=== PATIENT | female | born 1960 | race African-American/Black ===

== ENCOUNTER → 2016-05-25 | Outpatient (CLI) | payer OTHER ==
[2014-12-12 08:21] VITALS: BP 127/86
[~2016-05-25] MED LIST: HALO5TAB PO; LISI-334 PO; SERT100T PO; ZOLPIDEM 5 MG TABLET. PO ONE
--- NOTE | 2016-05-31 00:46 | SLEEP ---
DATE OF STUDY: 05/25/2016 REFERRING PHYSICIAN: Dr. Sandra Jones. The patient is a 56-year-old, who weighs 307 pounds with a BMI of 52. The patient's Wesley score was 2. Sleep study was performed at [facility]. This was a diagnostic study. During the night study, the patient spent 456 minutes in bed and slept for 386 minutes with a sleep efficiency of 85%. Sleep latency was 41 minutes with a REM latency of 153 minutes. Overall, sleep architecture showed increased stage I sleep, normal stage II sleep, normal slow wave and normal REM sleep. During the night study, the patient had 38 obstructive apneas, 5 mixed apneas and no central apneas. There were 25 hypopneas. The patient's apnea-hypopnea index was 11 per hour, supine index 16 per hour and a REM index of 32 per hour. EKG monitoring revealed normal sinus rhythm, average heart rate was 80 beats per minutes, no sustained arrhythmias were observed. Review of nocturnal oximetry study revealed a mean oxygen saturation of 98% with the lowest of 80%. 1.3% of time oxygen saturation remained between 80% and 89%. PLMS were not seen. The patient did not met the split night criteria for CPAP initiation. IMPRESSION: 1. Mild sleep apnea-hypopnea syndrome with moderate increase during supine sleep and worsening during REM sleep. Total AHI is 11 per hour, supine AHI 16 per hour and REM AHI of 32 per hour. 2. No clinically significant nocturnal hypoxia. 3. No clinically significant PLMS. RECOMMENDATIONS: 1. The patient would benefit from a trial of CPAP titration. Alternate treatment options include use of an oral appliance as recommended by the dentist. 2. Avoid supine sleep. 3. Weight loss is strongly advised. 4. Avoid RESOURCE ECONOMIST depressants. 5. Caution regarding driving until the patient's symptoms have resolved with the above recommendations. PEDRO MCGRATH MD DR: NADIA/jerod JOB#: [id number] / [id number] DO
== END | disposition home or self-care (01) ==
LOC: SLPLAB 18:36
PROVIDERS: ATTEND Physician Assistant
DX: G47.33 Obstructive sleep apnea (adult) (pediatric) (principal)
CPT/HCPCS: 95810

== ENCOUNTER → 2016-06-15 | Outpatient (CLI) | payer OTHER ==
[2014-12-12 08:21] VITALS: BP 127/86
[~2016-06-15] MED LIST changes: -ZOLPIDEM 5 MG TABLET. PO ONE
--- NOTE | 2016-06-21 11:06 | SLEEP ---
DATE OF STUDY: 06/15/2016 ATTENDING PHYSICIAN: Dr. Olivia Smith. The patient is a 56 years old who weighs 307 pounds with a BMI of 52. The patient had a previous sleep study on 05/25/2016, was found to have mild MICHELLE with moderate increase during supine sleep and worsening during REM sleep. Total AHI was 11 per hour, supine AHI 16 per hour and REM AHI of 32 per hour. The patient returned to [place] [facility] for CPAP titration. During the night study, the patient spent 408 minutes in bed and slept for 286 minutes with a sleep efficiency of 70%. Sleep latency was 45 minutes with a REM latency of 46 minutes. Overall, sleep architecture showed increased stage I and stage II sleep, normal slow wave and reduced REM sleep. The patient was started on CPAP at 5 cm water and titrated up to 9 cm of water. At the final pressure, the patient had supine as well as REM sleep. The patient slept for 47 minutes. AHI was reduced to 0 per hour and oxygen saturation remained above 92%. The patient used medium size nasal pillows. EKG monitoring revealed normal sinus rhythm, average heart rate was 80 beats per minute. No sustained arrhythmias were observed. PLMs were seen at the index of 1 per hour and none caused EEG arousals. IMPRESSION: 1. Sleep apnea diagnosed by previous sleep study. 2. No clinically significant PLMs. RECOMMENDATIONS: 1. CPAP at 9 cm water completely eliminated the patient's sleep apnea. It should be used on a nightly basis. 2. Follow up in 4-6 weeks to assess compliance with CPAP and to document clinical improvement. 3. Weight loss is strongly advised. 4. Avoid PHYSICAL EDUCATION SPECIALIST depressants. 5. Caution regarding driving until symptoms of sleep apnea resolve with the use of CPAP. 6. The patient to use medium size nasal pillows. PEDRO MCGRATH MD DR: NADIA/jerod JOB#: [id number] / [id number] OLIVIA Cooley MD
== END | disposition home or self-care (01) ==
LOC: RT 18:40
PROVIDERS: ATTEND Specialist
DX: G47.33 Obstructive sleep apnea (adult) (pediatric) (principal)
CPT/HCPCS: 95811

== ENCOUNTER → 2016-07-06 | Outpatient (CLI) | payer OTHER ==
[2014-12-12 08:21] VITALS: BP 127/86
--- NOTE | 2016-07-06 15:07 | RAD ---
EXAM: DIGITAL SCREEN BILAT W/CAD. HISTORY: Screening. COMPARISON: 08/28/2009. FINDINGS: Digital mammography was performed. Computer-aided detection (CAD) was utilized. The breast parenchyma demonstrates scattered fibroglandular densities (tissue density B). No dominant suspicious mass, suspicious microcalcifications, or architectural distortion is identified. Scattered, benign-appearing calcifications are present in both breasts. IMPRESSION: No mammographic evidence of malignancy. BI-RADS CATEGORY: 2 BENIGN FINDING(S) RECOMMENDED FOLLOW-UP: 12M 12 MONTH FOLLOW-UP PQRS compliance statement: Patient information was entered into a reminder system with a target due date for the next mammogram. Mammography is a sensitive method for finding small breast cancers, but it does not detect them all and is not a substitute for careful clinical examination. A negative mammogram does not negate a clinically suspicious finding and should not result in delay in biopsying a clinically suspicious abnormality. "Our facility is accredited by the [employer] Mammography Program."
== END | disposition home or self-care (01) ==
LOC: MAMMO 14:24
PROVIDERS: ATTEND Physician Assistant
DX: Z12.31 Encounter for screening mammogram for malignant neoplasm of breast (principal)
CPT/HCPCS: G0202; 77067

== ENCOUNTER 2016-09-13 10:38 | Emergency (ER) | payer OTHER ==
[~2016-09-13] VITALS: Ht 162.6 cm; Wt 136.1 kg
[2016-09-13] MEDS ORDERED: AZIT250T6 PO (11:04)
--- NOTE | 2016-09-13 11:07 | PHYS DOC ---
Past Medical History Past Medical History: Hypertension Alcohol Use: None Drug Use: None Adult General Chief Complaint Chief Complaint: sinus headache HPI HPI 56-year-old female presenting to the emergency department with sinus pressure pain in the front forehead. She also has a runny nose and watery eyes. This all started approximately 2 or 3 days ago. The pain in her head is similar to previous sinus infections. It is nonradiating mild and without alleviating or exacerbating factors. Review of systems is negative for chest pain shortness of breath fevers chills nausea vomiting. She denies any numbness weakness tingling. She denies abdominal pain nausea or vomiting. All other review of systems is negative unless otherwise noted in history of present illness. ED course: 56-year-old female presenting to the emergency department with signs and symptoms suggestive of acute sinusitis. Patient's blood pressure was elevated. Patient has not taken her blood pressure medications this morning. She denies any vision changes focal neurologic deficit shortness of breath or oliguria. No evidence of end organ damage or dysfunction. Pertinent physical exam findings lungs are clear to auscultation. No crackles or rales. Abdomen is soft nontender. Normal neurologic exam. The patient was given azithromycin for acute sinusitis. I also recommended nasal rinses. Patient was in discharged home. She stated she was going to be able to take her blood pressure medications this morning. The patient was then discharged home in stable condition to follow up with their primary care physician over the next 2-3 days. They were to return if their symptoms worsened or if they were concerned for any reason. [id number] discharge instructions and return precautions were given. Patient's questions were answered to their satisfaction. Patient is comfortable plan. Review of Systems Review of Systems SEE ABOVE. Allergies Allergies Allergies Coded Allergies Type Severity Reaction Last Updated Verified No Known Drug Allergies 12/12/14 No Physical Exam Physical Exam Constitutional: Well developed, well nourished, no acute distress, non-toxic appearance. [] HENT: Normocephalic, atraumatic, bilateral external ears normal, oropharynx moist, no oral exudates, nose normal. [] Eyes: PERRLA, EOMI, conjunctiva normal, no discharge. [] Neck: Normal range of motion, no tenderness, supple, no stridor. [] Cardiovascular:Heart rate regular rhythm, no murmur [] Lungs & Thorax: Bilateral breath sounds clear to auscultation [] Abdomen: Bowel sounds normal, soft, no tenderness, no masses, no pulsatile masses. [] Skin: Warm, dry, no erythema, no rash. [] Back: No tenderness, no CVA tenderness. [] Extremities: No tenderness, no cyanosis, no clubbing, ROM intact, no edema. [] Neurologic: Alert and oriented X 3, normal motor function, normal sensory function, no focal deficits noted. [] Psychologic: Affect normal, judgement normal, mood normal. [] EKG EKG [] Radiology/Procedures Radiology/Procedures [] Course & Med Decision Making Course & Med Decision Making Pertinent Labs and Imaging studies reviewed. (See chart for details) [] Dragon Disclaimer Dragon Disclaimer This electronic medical record was generated, in whole or in part, using a voice recognition dictation system. Departure Departure Impression: Primary Impression: Sinusitis Disposition: HOME, SELF-CARE Condition: STABLE Referrals: OLIVIA CAZARES MD (PCP) Patient Instructions: Sinusitis Additional Instructions: Thank you for allowing us to participate in your care today. Followup with your primary care physician in 3 days if your symptoms do not improve. Call your Primary Doctor tomorrow and inform them of your visit today. If you do not have a primary care provider you can ask for a list of our primary care providers. Return to the emergency department you have any new or concerning findings. This should be evaluated by the primary care physician and any necessary consulting services for continued management within a few days after discharge. Return to emergency room if you have any new or concerning symptoms including but not limited to fever, chills, nausea, vomiting, intractable pain, any new rashes, chest pain, shortness of air, uncontrolled bleeding, difficulty breathing, and/or vision loss. Scripts Azithromycin (AZITHROMYCIN TABLET) 250 Mg Tablet 1 PKG PO UD, #6 TAB Prov: MARYSOL BOSCH MD 09/13/16 MARYSOL BOSCH MD Sep 13, 2016 11:07
[2016-09-13 11:20] VITALS: BP 173/65
== END 2016-09-13 11:32 | disposition home or self-care (01) ==
LOC: ER 10:38
DX: J32.9 Chronic sinusitis, unspecified (principal); I10 Essential (primary) hypertension
CPT/HCPCS: 99283

== ENCOUNTER 2017-11-02 16:23 | Emergency (ER) | payer OTHER ==
[~2017-11-02] VITALS: Ht 162.6 cm; Wt 135.2 kg
[~2017-11-02 16:23] MED LIST changes: +AZIT250T6 PO; +FAMO-63 PO; +HYDR25TA PO
[2017-11-02 16:42] VITALS: BP 155/72
[2017-11-02] MEDS ORDERED: NAPROXEN 500 MG TABLET PO STA (16:44)
[2017-11-02] MEDS ORDERED: diazePAM 5 MG TABLET PO ONE (16:45)
[2017-11-02] MEDS ORDERED: CYCL10TA2 PO (16:50)
[2017-11-02] MEDS ORDERED: DICL50TA4 PO (16:50)
--- NOTE | 2017-11-02 16:51 | PHYS DOC ---
Past Medical History Past Medical History: Anxiety, Hypertension, Schizophrenia Past Surgical History: Cholecystectomy, Other Additional Past Surgical Histo: fibroids removed, HERNIA Alcohol Use: None Drug Use: None Adult General Chief Complaint Chief Complaint: OTHER COMPLAINTS [facility] HPI Patient is a 57 year old female with a history of arthritis, hypertension, schizophrenia, who presents today complaining of 10 out of 10 pain throughout her body that has been going on since 2014. Patient denies any known injury. Patient states she would like something to calm her muscles down and relieve the pain. She states she used to follow-up with the primary care doctor but the doctor is no longer in the practice. Patient states her daughter also moved into her house 3 months ago, and this has made her pain worse. Patient states the daughter has the mind of a child and has to be told what to do all the time. Patient denies any chest pain or shortness of breath. Denies any fever coughing or congestion. Denies being on any statins. Review of Systems Review of Systems Constitutional: Denies fever or chills [] Eyes: Denies change in visual acuity, redness, or eye pain [] HENT: Denies nasal congestion or sore throat [] Respiratory: Denies cough or shortness of breath [] Cardiovascular: No additional information not addressed in HPI [] GI: Denies abdominal pain, nausea, vomiting, bloody stools or diarrhea [] : Denies dysuria or hematuria [] Musculoskeletal: Pain throughout her body chronic Integument: Denies rash or skin lesions [] Neurologic: Denies headache, focal weakness or sensory changes [] All other systems were reviewed and found to be within normal limits, except as documented in this note. Allergies Allergies Allergies Coded Allergies Type Severity Reaction Last Updated Verified No Known Drug Allergies 12/12/14 No Physical Exam Physical Exam Constitutional: Well developed, well nourished, no acute distress, non-toxic appearance. [] HENT: Normocephalic, atraumatic, bilateral external ears normal, oropharynx moist, no oral exudates, nose normal. [] Eyes: PERRLA, EOMI, conjunctiva normal, no discharge. [] Neck: Normal range of motion, no tenderness, supple, no stridor. [] Cardiovascular:Heart rate regular rhythm, no murmur [] Lungs & Thorax: Bilateral breath sounds clear to auscultation [] Abdomen: Bowel sounds normal, soft, no tenderness, no masses, no pulsatile masses. [] Skin: Warm, dry, no erythema, no rash. [] Back: No tenderness, no CVA tenderness. [] Extremities: No tenderness, no cyanosis, no clubbing, ROM intact, no edema. [] Neurologic: Alert and oriented X 3, normal motor function, normal sensory function, no focal deficits noted. [] Psychologic: Flat affect, very loud during the conversation EKG EKG [] Radiology/Procedures Radiology/Procedures [] Course & Med Decision Making Course & Med Decision Making Pertinent Labs and Imaging studies reviewed. (See chart for details) This is a 57-year-old female patient presenting to the ED today complaining of pain throughout her body that has been going on since 2013. No known injury. Patient to be discharged with diclofenac and cyclobenzaprine. Follow-up with her own PCP or doctor from the list provided in the next 1-2 weeks. Dragon Disclaimer Dragon Disclaimer This electronic medical record was generated, in whole or in part, using a voice recognition dictation system. Departure Departure Impression: Primary Impression: Chronic pain Additional Impression: Musculoskeletal pain Disposition: HOME, SELF-CARE Condition: STABLE Referrals: OLIVIA CAZARES MD (PCP) Follow up in one week Patient Instructions: Musculoskeletal Pain Additional Instructions: You were evaluated in the emergency room, we wrote you prescription medications , take them as prescribed. Establish care with one of the doctors from the list provided and follow-up as soon as possible. Scripts Diclofenac Sodium (DICLOFENAC SODIUM) 50 Mg Tablet.dr 1 TAB PO BID, #20 TAB 0 Refills Prov: KAREN GUTIÉRREZ APRN 11/02/17 Cyclobenzaprine Hcl (CYCLOBENZAPRINE HCL) 10 Mg Tablet 1 TAB PO TID, #30 TAB Prov: KAREN GUTIÉRREZ APRN 11/02/17 Problem Qualifiers Primary Impression: Chronic pain Chronic pain type: chronic pain syndrome Qualified Codes: G89.4 - Chronic pain syndrome KAREN GUTIÉRREZ APRN Nov 02, 2017 16:51
== END 2017-11-02 17:18 | disposition home or self-care (01) ==
LOC: ER 16:23
DX: G89.29 Other chronic pain (principal); M79.1 Myalgia; M19.90 Unspecified osteoarthritis, unspecified site; I10 Essential (primary) hypertension; F41.9 Anxiety disorder, unspecified; F20.9 Schizophrenia, unspecified; Z90.49 Acquired absence of other specified parts of digestive tract
CPT/HCPCS: 99284

== ENCOUNTER → 2018-07-31 | Outpatient (CLI) | payer OTHER ==
[~2018-07-31] MED LIST changes: +AMLO5TAB10 PO; +BENZ1TAB5 PO; +CLON0.5T11 PO; +CLOR7.5T PO; +CYCL10TA2 PO; +DICL50TA4 PO; +DIVA500T2 PO; +DULO60CA6 PO; +HALO2ORA9 PO; +LOSA1TAB19 PO; +OXYC5CAP PO; +WARF1TAB74 PO
--- NOTE | 2018-07-31 15:27 | RAD ---
EXAM: Chest, 2 views. HISTORY: Knee surgery. COMPARISON: None. FINDINGS: 2 views of the chest are obtained. There is no infiltrate, pleural effusion or pneumothorax. There is a prominent cardiac silhouette. IMPRESSION: No acute pulmonary finding. Electronically signed by: Monik Zurita MD (07/31/2018 3:24 PM) [facility]
== END | disposition home or self-care (01) ==
LOC: SURGPAT 13:43
PROVIDERS: ATTEND Orthopaedic Surgery
DX: Z01.818 Encounter for other preprocedural examination (principal); M25.561 Pain in right knee
CPT/HCPCS: 71046; 87641

== ENCOUNTER 2018-08-14 06:05 | Inpatient (IN) | payer OTHER ==
[2018-08-14] VITALS (9 sets, daily range): BP systolic 105–131; BP diastolic 59–81
[~2018-08-14] VITALS: Ht 162.6 cm; Wt 121.6 kg
[~2018-08-14 06:05] MED LIST changes: +HYDROcodone/APAP 7.5/325MG 1 TAB TABLET PO PRN; -OXYC5CAP PO; +TRANEXAMIC ACID 1,000 MG in IV NS 50ML -- 1ST BAG INJ ONE; -WARF1TAB74 PO; +ceFAZolin SODIUM 3 GM in IV DEXTROSE 5% 100ML 100 ML IV PRN
[2018-08-14] MEDS ORDERED: LIDOCAINE 2% PF 5 ML VIAL. ONE (07:11)
[2018-08-14] MEDS ORDERED: ONDANSETRON PF 4 MG/2 ML VIAL. ONE ×2 (07:11→08:00)
[2018-08-14] MEDS ORDERED: DEXAMETHASONE SOD PHOS 4 MG/ML VIAL ONE ×2 (07:11→08:00)
[2018-08-14] MEDS ORDERED: fentaNYL PF VIAL 100 MCG/2 ML VIAL ONE ×4 (07:11→09:38)
[2018-08-14] MEDS ORDERED: MIDAZOLAM HCL/PF 2 MG/2 ML VIAL. ONE ×2 (07:11→08:00)
[2018-08-14] MEDS ORDERED: PROPOFOL 20 ML IV ONE (07:11)
[2018-08-14] MEDS: IV RINGERS,LACTATED 1000ML 1,000 ML IV SCH ×2 (07:24→20:35)
[2018-08-14] MEDS ORDERED: fentaNYL PF VIAL 100 MCG/2 ML VIAL IV PRN (07:45)
[2018-08-14] MEDS ORDERED: CALCIUM CARBONATE 500 MG TAB.CHEW PO PRN (07:45)
[2018-08-14] MEDS ORDERED: PROCHLORPERAZINE 5 MG TABLET. PO PRN (07:45)
[2018-08-14] MEDS ORDERED: DEXTROSE 50% 25 GM / 50ML DISP.SYRIN. IV PRN (07:45)
[2018-08-14] MEDS ORDERED: ceFAZolin SODIUM 3 GM in IV DEXTROSE 5% 100ML 100 ML IV SCH (07:45)
[2018-08-14] MEDS ORDERED: 0.9 % SODIUM CHLORIDE 10 ML DISP.SYRIN. IV PRN (07:45)
[2018-08-14] MEDS ORDERED: diphenhydrAMINE 50 MG/ML VIAL IV PRN (07:45)
[2018-08-14] MEDS ORDERED: METOCLOPRAMIDE HCL 10 MG/2 ML VIAL. IV PRN (07:45)
[2018-08-14] MEDS ORDERED: MORPHINE SULFATE 2 MG/ML VIAL. IV PRN (07:45)
[2018-08-14] MEDS ORDERED: ZOLPIDEM 5 MG TABLET. PO PRN (07:45)
[2018-08-14] MEDS ORDERED: ePHEDrine PF IN SALINE 50 MG/10 ML SYRINGE. IV ONE ×2 (07:49→08:00)
[2018-08-14] MEDS ORDERED: PHENYLEPHRINE in 0.9% NACL PF 1 MG/10 ML SYRINGE. IV ONE ×2 (07:54→08:00)
--- NOTE | 2018-08-14 07:56 | HP ---
ADMIT DATE: 08/14/2018 CHIEF COMPLAINT: Bilateral knee pain. HISTORY OF PRESENT ILLNESS: The patient has bilateral knee pain for many years, the right has been worse since an injury as a child and continues. The right knee more than left worse with activity and she has had multiple shots in the past that are no help. She is extremely limited in her activities of daily living and gets out very little due to her limited mobility issues. She only eats one meal a day at lunch. PAST MEDICAL HISTORY: Significant for hypertension and obesity. PAST SURGICAL HISTORY: Cholecystectomy, hernia repair. FAMILY HISTORY: Denies any family history. SOCIAL HISTORY: Denies smoking or drug use, only occasional alcohol consumption. MEDICATIONS: Include losartan. ALLERGIES: She has no known drug allergies. REVIEW OF SYSTEMS: Reveals her current weight about 268 pounds and continues weight loss. She denies any chest pain, shortness of breath, fever, chills, other constitutional symptoms or recent illness. PHYSICAL EXAMINATION: VITAL SIGNS: Per admission sheet. HEENT: Atraumatic, normocephalic. HEART: Regular rate and rhythm. LUNGS: Clear to auscultation bilaterally. ABDOMEN: Benign, obese. EXTREMITIES: Lower extremities reveal slight varus on the right, more so than the left with joint line tenderness bilaterally. No gross ligamentous instability. Normal patellofemoral tracking with crepitus bilaterally moderately. Normal alignment, stability of bilateral hips and ankles. IMAGING: X-rays show tricompartmental degenerative changes of the right knee, worse than the left. TREATMENT PLAN: I went over with her previously in her clinic evaluation. Risks, benefits, postoperative course of total knee arthroplasty and possibility of infection, premature wear or loosening, continued pain, nerve or blood vessel damage, medical or other anesthetic complications among others. All her questions were answered. She wishes to proceed with surgical evaluation and treatment, which will occur today with [facility] admission to follow. SHERI GARCIA MD DR: NORA/jerod JOB#: [id number] / [id number] OLIVIA Cooley MD
[2018-08-14] MEDS ORDERED: PROPOFOL 10 MG/ML (20ML) VIAL. IV ONE (08:00)
[2018-08-14] MEDS ORDERED: LIDOCAINE 1% PF 5 ML VIAL. ONE (08:00)
[2018-08-14] MEDS ORDERED: TRANEXAMIC ACID 1,000 MG in IV NS 50ML -- 2ND BAG INJ ONE (08:00)
[2018-08-14] MEDS: MORPHINE SULFATE 5 MG, KETOROLAC 30MG VIAL 30 MG, ROPIVacaine 0.5% PF 60 ML, EPINEPHrin... INT ART ONE ×10 (08:24→09:47)
[2018-08-14] MEDS: IV NORMAL SALINE 1000ML BAG 1,000 ML IV SCH ×2 (11:00→17:03)
--- NOTE | 2018-08-14 11:17 | PDOC4 ---
Operative Note Operative Note Date of surgery: 08/14/2018 Preoperative diagnosis: Degenerative joint disease right knee Postoperative diagnosis: Same Operative procedure: Right total knee arthroplasty Surgeon: Luanne Assist: Rena Anesthesia: Gen. endotracheal Estimated blood loss: 50 mL Complications: None Operative indications: Patient is a 58-year-old female with long-standing right knee pain and degenerative change more so than left due to a childhood injury on her right knee. She has had severe limitations of her activities of daily living recently and has had multiple injections over a number of years in the past with no recent affect. She has been losing weight despite inability to effectively get up and around very well and wishes to proceed with more definitive treatment. I had gone over with her the possibility of complications including infection nerve or blood vessel damage medical or other anesthetic complications premature wear or loosening continued pain and she wishes to proceed with surgical evaluation and treatment. Operative text: Patient was identified procedure verified patient placed in the supine position on the operating table. After adequate amounts of general anesthesia were administered the right lower extremity was prepped and draped in standard sterile fashion with a thigh tourniquet. After timeout was performed patient procedure identified and verified the right leg was exsanguinated by Esmarch bandage tourniquet inflated to 350 mm mercury midline incision was made medial parapatellar approach patella was everted fat pad was excised and the femur was drilled for the intramedullary drill guide distal cut was made in the standard fashion and a size 4 cutting block was selected to make anterior posterior and chamfer cuts. Tibial cutting guide was then aligned extra medullary with the second toe and medial release was carried out to obtain excellent ligament balance varus valgus and in flexion extension. Tibia was drilled and broached after a size 3 implant was selected a size 4 cruciate retaining femoral component was placed and found to have excellent stability and range of motion with a size 12 spacer. The patella was noted to be very small and a biconvex patella was placed medially after reaming and lateral bone was removed to avoid any impingement. Trial components were removed thorough irrigation carried out normal saline solution and bleeding points were controlled by electrocautery and the following components were cemented in place with polymethylmethacrylate cement a size 3 journey tibia nonporous tibial baseplate a size 4 cruciate retaining journey 2 Oxinium femoral component and a size 23 mm biconvex patellar component. After excess cement was removed and further thorough irrigation carried out normal saline solution a 12 mm journey articular insert was locked into place thorough irrigation again carried out with normal saline solution joint capsule was injected with the intra-articular mixture and Hemovac drain and pain catheter were placed. Retinaculum was closed with #2 Ethibond suture and reinforced with #1 PDS strata fix subcutaneous closure with buried Vicryl suture subcuticular closure with 3-0 Monocryl strata fix a yang dressing with Acticoat was placed toes were noted be warm pink find deflation of tourniquet patient was returned recovery room in stable condition having tolerated procedure well. Rena mri assistant was present for the procedure and assisted in prepping draping retraction and skin closure SHERI GARCIA MD Aug 14, 2018 11:17
--- NOTE | 2018-08-14 11:55 | RAD ---
2 view right knee study Clinical indications: Total right knee arthroplasty FINDINGS: Total right knee arthroplasty is evident which is well aligned. No acute fracture or osteolytic process is seen. IMPRESSION: Total right knee arthroplasty. Electronically signed by: Nato Aldridge MD (08/14/2018 11:52 AM) [id number]
[2018-08-14] MEDS: ONDANSETRON ODT 4 MG TAB.RAPDIS. PO SCH ×2 (12:00→17:50)
[2018-08-14] MEDS: ONDANSETRON PF 4 MG/2 ML VIAL. IV SCH ×2 (12:00→17:49)
--- NOTE | 2018-08-14 12:57 | NUR ---
RECEIVED FROM RECOVERY. SHE IS SLEEPY BUT WILL ANSWER QUESTIONS. UNCERTAIN ABOUT THE VALIDITY. MOTHER AND SISTER HERE; ANSWERED HISTORY QUESTIONS BUT UNCERTAIN ABOUT DAY TO DAY ACTIVITIES I.E BM? FELL YES BUT UNCERTAIN ABOUT DATE. SHE HAS GOOD MOTION, SENSATION AND PULSES IN BILATERAL LOWER EXTREMITIES. SHE FALLS ASLEEP QUICKLY. WILL REINFORCE INSTRUCTION WHEN MORE AWAKE.
[2018-08-14 13:15] LABS: PROTHROMBIN TIME PATIENT 12.9 SEC (11.7-14.0)
[2018-08-14] MEDS: ceFAZolin SODIUM 3 GM in IV DEXTROSE 5% 100ML 100 ML IV SCH ×2 (13:41→19:28)
[2018-08-14] MEDS ORDERED: WARFARIN 7.5 MG TABLET. PO ONE (16:00)
[2018-08-14] MEDS: FERROUS SULFATE 325 MG TABLET. PO SCH (16:02)
[2018-08-14] MEDS: oxyCODONE IR 5 MG TABLET PO PRN (16:02)
[2018-08-14] MEDS: KETOROLAC 30MG VIAL 30 MG, BUPIVACAINE MPF 0.25% 20 ML, EPINEPHrine 0.5 MG in TOTAL VOL... INT ART SCH (18:21)
[2018-08-14] MEDS: HALOPERIDOL 2 MG/ML ORAL.CONC. PO SCH (21:29)
[2018-08-14] MEDS: BENZTROPINE MESYLATE 1 MG TABLET. PO SCH (21:29)
[2018-08-14] MEDS: DIVALPROEX EXTENDED RELEASE 500 MG TAB.ER.24H. PO SCH (21:30)
[2018-08-14] MEDS ORDERED: BENZTROPINE MESYLATE 1 MG TABLET. ONE (21:30)
[2018-08-14] MEDS: clonazePAM 1 MG TABLET PO SCH (21:30)
[2018-08-15] MEDS: ceFAZolin SODIUM 3 GM in IV DEXTROSE 5% 100ML 100 ML IV SCH (01:28)
[2018-08-15 02:30] VITALS: BP 105/61
[2018-08-15 05:02] LABS: HEMATOCRIT 32.3 % (36.0-47.0); HEMOGLOBIN 10.7 g/dL (12.0-15.5)
[2018-08-15 05:09] LABS: PROTHROMBIN TIME PATIENT 15.3 SEC (11.7-14.0)
[2018-08-15] MEDS: GABAPENTIN 100 MG CAPSULE. PO SCH ×3 (05:41→20:28)
[2018-08-15] MEDS: KETOROLAC 30MG VIAL 30 MG, BUPIVACAINE MPF 0.25% 20 ML, EPINEPHrine 0.5 MG in TOTAL VOL... INT ART SCH (05:41)
[2018-08-15] MEDS: ONDANSETRON PF 4 MG/2 ML VIAL. IV SCH ×2 (06:00)
[2018-08-15] MEDS: ONDANSETRON ODT 4 MG TAB.RAPDIS. PO SCH ×2 (06:00)
[2018-08-15] MEDS ORDERED: MAGNESIUM HYDROXIDE 2,400 MG/30 ML ORAL.SUSP. PO PRN (06:00)
[2018-08-15 06:28] VITALS: BP 106/61
[2018-08-15] MEDS ORDERED: LORazepam 1 MG TABLET PO PRN (07:15)
[2018-08-15] MEDS: FERROUS SULFATE 325 MG TABLET. PO SCH ×2 (08:03→16:27)
[2018-08-15] MEDS: DULoxetine HCL 30 MG CAPSULE.DR PO SCH (08:03)
[2018-08-15] MEDS: ACETAMINOPHEN 500 MG TABLET PO SCH ×3 (08:03→20:28)
[2018-08-15] MEDS: hydroCHLOROthiazide 12.5 MG CAPSULE PO SCH (08:03)
[2018-08-15] MEDS: BENZTROPINE MESYLATE 1 MG TABLET. PO SCH ×2 (08:03→20:28)
[2018-08-15] MEDS: MULTIVITAMIN with MINERAL TABLET. PO SCH (08:03)
[2018-08-15] MEDS: LOSARTAN POTASSIUM 50 MG TABLET. PO SCH (08:04)
[2018-08-15] MEDS: MELOXICAM 7.5 MG TABLET PO SCH (08:04)
[2018-08-15] MEDS: SENNOSIDES/DOCUSATE 8.6/50MG TABLET. PO SCH (08:05)
[2018-08-15] MEDS: amLODIPine BESYLATE 5 MG TABLET PO SCH (08:05)
[2018-08-15] MEDS: HALOPERIDOL 2 MG/ML ORAL.CONC. PO SCH ×2 (08:05→20:29)
[2018-08-15] MEDS: clonazePAM 1 MG TABLET PO SCH ×2 (08:07→20:29)
[2018-08-15] MEDS ORDERED: BENZTROPINE MESYLATE 1 MG TABLET. ONE ×2 (09:00)
[2018-08-15] MEDS ORDERED: NON FORMULARY ITEM (Losartan/Hydrochlorothiazide (Losartan-Hctz 50-12.5 Mg Tab) 1 TAB) PO SCH (09:00)
--- NOTE | 2018-08-15 09:00 | NUR ---
Patients IV in her left hand was dislodged when transferring this morning. IV was then discontinued and a bandage was applied. IV in right hand still intact. Will continue to monitor.
[2018-08-15] MEDS: IV RINGERS,LACTATED 1000ML 1,000 ML IV SCH (09:55)
[2018-08-15] MEDS ORDERED: ONDANSETRON PF 4 MG/2 ML VIAL. IV PRN (12:00)
[2018-08-15] MEDS ORDERED: ONDANSETRON ODT 4 MG TAB.RAPDIS. PO PRN (12:00)
[2018-08-15] MEDS ORDERED: BISACODYL 10 MG SUPP.RECT. PR PRN (16:00)
[2018-08-15] MEDS ORDERED: WARFARIN 5 MG TABLET. PO SCH (16:00)
[2018-08-15] MEDS: oxyCODONE IR 5 MG TABLET PO PRN (16:28)
[2018-08-15 17:47] VITALS: BP 100/68
--- NOTE | 2018-08-15 18:09 | NUR ---
Pharmacy Warfarin Dosing Note S:Pharmacy consulted to assist with anticoagulation therapy started 08/14/18 with target INR: 1.6 - 2.5 O:FLEX REYES is a 58 year old F with TKA LABS: Last INR: 1.2 Last HGB: 10.7 Last HCT: Last PLT: Last dose of 7.5 mg given on 08/14/18 at 1600 Previous Regimen: Vitamin K given: N Drug Interaction Changes: Ongoing Drug Interactions: A:INR of 1.2 is below desired range. Target range for this patient is: 1.6 - 2.5 P: Warfarin dose: 5 mg Today at 1600 Bridge Therapy: Next INR due AM Pharmacy anticoagulation service will continue to follow. JORY CONNER Orion, 08/15/18 [id number]
--- NOTE | 2018-08-15 18:30 | PDOC ---
PROGRESS NOTES Subjective Subjective Problems overnight: Overall has minimal complaints states pain is well controlled and she is getting up and around reasonably with assistance Objective Vital Signs Vital Signs Date Time Temp Pulse Resp B/P (MAP) Pulse Ox O2 Delivery O2 Flow Rate FiO2 08/15/18 17:47 98.0 90 20 100/68 (79) 96 Room Air 98.0 08/15/18 06:28 3.0 Physical Exam Rex dressing is intact Hemovac and pain catheter likewise intact distal neurovascular status intact Labs Laboratory Tests Test 08/14/18 10:43 08/14/18 13:00 08/15/18 04:00 Glucose (Fingerstick) 152 mg/dL (70-99) Prothrombin Time 12.9 SEC (11.7-14.0) 15.3 SEC (11.7-14.0) Prothromb Time International Ratio 1.0 (0.8-1.1) 1.2 (0.8-1.1) Hemoglobin 10.7 g/dL (12.0-15.5) Hematocrit 32.3 % (36.0-47.0) Mean Corpuscular Hemoglobin Concent 33 g/dL (31-37) Laboratory Tests Test 08/15/18 04:00 Hemoglobin 10.7 g/dL (12.0-15.5) Hematocrit 32.3 % (36.0-47.0) Mean Corpuscular Hemoglobin Concent 33 g/dL (31-37) Prothrombin Time 15.3 SEC (11.7-14.0) Prothromb Time International Ratio 1.2 (0.8-1.1) Imaging Postop x-rays show well aligned and sized total knee arthroplasty Assessment Assessment POD# [1], S/P [right total knee arthroplasty] Plan Plan of Care Continue mobilize weightbearing as tolerated, Coumadin anticoagulation Placement and discharge based on progress SHERI GARCIA MD Aug 15, 2018 18:30
[2018-08-15] MEDS: DIVALPROEX EXTENDED RELEASE 500 MG TAB.ER.24H. PO SCH (20:28)
--- NOTE | 2018-08-15 21:30 | NUR ---
resting in recliner with legs elevated. upon arousing; states she would like to sleep in bed. transferred with mod assist 2 to commode prior to going to bed. she was unable to void. o2 applied related to history of sleep apnea (no Cap) at 3/nc. spot check while sleeping was 92% on 3l/nc. she transfers fair, but unable to walk long distances
[2018-08-16] MEDS: ACETAMINOPHEN 500 MG TABLET PO SCH ×4 (03:00→21:26)
[2018-08-16 05:27] LABS: HEMATOCRIT 30.2 % (36.0-47.0); HEMOGLOBIN 10.1 g/dL (12.0-15.5)
[2018-08-16 05:31] LABS: PROTHROMBIN TIME PATIENT 27.8 SEC (11.7-14.0)
[2018-08-16] MEDS: GABAPENTIN 100 MG CAPSULE. PO SCH ×3 (05:37→21:26)
[2018-08-16 06:00] VITALS: BP 112/63
--- NOTE | 2018-08-16 06:02 | NUR ---
awake. wants to go to the bathroom. transfers poorly with max assist of 2. she was unable to void at this time and wants to go back to bed. returned to bed. bladder scan completed; 200cc. instructed to drink more water.
[2018-08-16 08:15] VITALS: BP 115/54
[2018-08-16] MEDS: SENNOSIDES/DOCUSATE 8.6/50MG TABLET. PO SCH (08:16)
[2018-08-16] MEDS: DULoxetine HCL 30 MG CAPSULE.DR PO SCH (08:16)
[2018-08-16] MEDS: BENZTROPINE MESYLATE 1 MG TABLET. PO SCH ×2 (08:16→21:26)
[2018-08-16] MEDS: MELOXICAM 7.5 MG TABLET PO SCH (08:17)
[2018-08-16] MEDS: HALOPERIDOL 2 MG/ML ORAL.CONC. PO SCH ×2 (08:17→21:27)
[2018-08-16] MEDS: FERROUS SULFATE 325 MG TABLET. PO SCH ×2 (08:17→17:04)
[2018-08-16] MEDS: MULTIVITAMIN with MINERAL TABLET. PO SCH (08:17)
[2018-08-16] MEDS: clonazePAM 1 MG TABLET PO SCH ×2 (08:17→21:27)
[2018-08-16] MEDS: oxyCODONE IR 5 MG TABLET PO PRN (08:32)
[2018-08-16] MEDS ORDERED: BENZTROPINE MESYLATE 1 MG TABLET. ONE ×2 (09:00)
--- NOTE | 2018-08-16 11:10 | NUR ---
Pharmacy Warfarin Dosing Note S:Pharmacy consulted to assist with anticoagulation therapy started 08/14/18 with target INR: 1.6 - 2.5 O:FLEX REYES is a 58 year old F with TKA LABS: Last INR: 2.6 Last HGB: 10.1 Last HCT: 30.2 Last PLT: Last dose of 5 mg given on 08/15/18 at 1627 Previous Regimen: Vitamin K given: N Drug Interaction Changes: Ongoing Drug Interactions: A:INR of 2.6 is within desired range. Target range for this patient is: 1.6 - 2.5 P: Warfarin dose: Hold Today at 1600 Bridge Therapy: NONE Next INR due 08/17/18 Pharmacy anticoagulation service will continue to follow. KIM LYNN RP, 08/16/18 [id number]
[2018-08-16] MEDS: hydroCHLOROthiazide 12.5 MG CAPSULE PO SCH (12:00)
[2018-08-16] MEDS: LOSARTAN POTASSIUM 50 MG TABLET. PO SCH (12:00)
[2018-08-16] MEDS: amLODIPine BESYLATE 5 MG TABLET PO SCH (12:00)
--- NOTE | 2018-08-16 16:07 | PATHOLOGY ---
[facility] Accession Number: [id number] . 01 Material submitted: . knee - RIGHT KNEE BONE AND TISSUE. Modifiers: right . 01 Clinician provided ICD-10: . 01 Clinical history: . RIGHT KNEE ARTHRITIS AND CHRONIC PAIN . 02 Diagnosis: Segments of bone and soft tissue, right total knee arthroplasty: - Advanced degenerative arthritis. (JPM:tiago; 08/16/2018) QMS/08/16/2018 . 02 Electronically signed: . Lucien Berry MD, Pathologist NPI- [id number] . 01 Gross description: . Received in formalin labeled "Maltbia, Teretha, right knee bone and tissue", are multiple segments of bone including apparent tibia plateau, patella, no discrete meniscus, and soft tissue measuring 10.0 x 8.5 x 2.0 cm in aggregate. Several bone segments are partially covered by pitted ly and granular articular cartilage with areas of eburnation. Osteophyte and possible ly-brown synovial villi are present. [employer] sections submitted in A1 after decalcification. ([facility]; 08/15/2018) [facility] . 02 Pathologist provided ICD-10: M17.11 . 02 CPT . 396088, [id number] Specimen Comment: A courtesy copy of this report has been sent to Specimen Comment: [phone], . Specimen Comment: Report sent to / DR CAZARES Performed at: 01 [facility] [address], [place] [id number] MD Pasquale Veloz MD Phone: [phone] Performed at: 02 [facility] [address] [place], [place] [id number] MD Lucien Berry MD Phone: [phone]
[2018-08-16 18:15] VITALS: BP 108/63
[2018-08-16] MEDS: DIVALPROEX EXTENDED RELEASE 500 MG TAB.ER.24H. PO SCH (21:27)
[2018-08-17] MEDS: ACETAMINOPHEN 500 MG TABLET PO SCH ×2 (02:30→08:10)
[2018-08-17 04:42] LABS: HEMATOCRIT 34.3 % (36.0-47.0); HEMOGLOBIN 11.5 g/dL (12.0-15.5)
[2018-08-17 05:09] LABS: PROTHROMBIN TIME PATIENT 21.3 SEC (11.7-14.0)
[2018-08-17] MEDS: GABAPENTIN 100 MG CAPSULE. PO SCH ×2 (06:08→13:35)
[2018-08-17 06:33] VITALS: BP 121/70
[2018-08-17] MEDS: oxyCODONE IR 5 MG TABLET PO PRN (06:41)
--- NOTE | 2018-08-17 07:18 | NUR ---
Wanting to sit on edge of bed this am. Assisted. O2 at 3l per n/c sating 94-96%. Took off O2. Rechecked O2 sat after 15 minutes. Sating at 86%. Replaced O2 at 3l per n/c. Encourage pt to use IS every 1 while awake. Cont. monitor.
[2018-08-17] MEDS: MELOXICAM 7.5 MG TABLET PO SCH (08:08)
[2018-08-17] MEDS: HALOPERIDOL 2 MG/ML ORAL.CONC. PO SCH (08:08)
[2018-08-17] MEDS: clonazePAM 1 MG TABLET PO SCH (08:08)
[2018-08-17] MEDS: SENNOSIDES/DOCUSATE 8.6/50MG TABLET. PO SCH (08:08)
[2018-08-17] MEDS: MULTIVITAMIN with MINERAL TABLET. PO SCH (08:09)
[2018-08-17] MEDS: DULoxetine HCL 30 MG CAPSULE.DR PO SCH (08:09)
[2018-08-17] MEDS: FERROUS SULFATE 325 MG TABLET. PO SCH (08:10)
[2018-08-17] MEDS: BENZTROPINE MESYLATE 1 MG TABLET. PO SCH (08:10)
[2018-08-17] MEDS: LOSARTAN POTASSIUM 50 MG TABLET. PO SCH (08:18)
[2018-08-17] MEDS: hydroCHLOROthiazide 12.5 MG CAPSULE PO SCH (08:18)
[2018-08-17] MEDS ORDERED: BENZTROPINE MESYLATE 1 MG TABLET. ONE (09:00)
--- NOTE | 2018-08-17 09:28 | PDOC ---
PROGRESS NOTES Subjective Subjective Problems overnight: Indicates that her right knee is sore and stiff and weak with activity Objective Vital Signs Vital Signs Date Time Temp Pulse Resp B/P (MAP) Pulse Ox O2 Delivery O2 Flow Rate FiO2 08/17/18 08:20 Room Air 3.0 08/17/18 08:18 91 120/83 08/17/18 06:41 18 08/17/18 06:33 98.0 94 98.0 Physical Exam Her dressing shows no drainage whatsoever she has some mild swelling intact distal neurovascular status no calf tenderness Labs Laboratory Tests Test 08/16/18 04:45 08/17/18 03:55 Hemoglobin 10.1 g/dL (12.0-15.5) 11.5 g/dL (12.0-15.5) Hematocrit 30.2 % (36.0-47.0) 34.3 % (36.0-47.0) Mean Corpuscular Hemoglobin Concent 33 g/dL (31-37) 34 g/dL (31-37) Prothrombin Time 27.8 SEC (11.7-14.0) 21.3 SEC (11.7-14.0) Prothromb Time International Ratio 2.6 (0.8-1.1) 1.9 (0.8-1.1) Laboratory Tests Test 08/17/18 03:55 Hemoglobin 11.5 g/dL (12.0-15.5) Hematocrit 34.3 % (36.0-47.0) Mean Corpuscular Hemoglobin Concent 34 g/dL (31-37) Prothrombin Time 21.3 SEC (11.7-14.0) Prothromb Time International Ratio 1.9 (0.8-1.1) Assessment Assessment POD# [2], S/P [right total knee arthroplasty] Plan Plan of Care She is coming along reasonably well with physical therapy taking oxycodone for pain and Coumadin anticoagulation She certainly needs more help than available and is likely going to be going to [facility] SHERI GARCIA MD Aug 17, 2018 09:28
[2018-08-17] MEDS ORDERED: WARF1TAB74 PO (09:31)
[2018-08-17] MEDS ORDERED: OXYC5CAP PO (09:31)
--- NOTE | 2018-08-17 09:34 | SNU/HH DC ---
DISCHARGE ORDERS DISCHARGE INFORMATION: DISCHARGE DATE: Aug 17, 2018 FINAL DIAGNOSIS DJD of right knee, status post right total knee arthroplasty CONDITION ON DISCHARGE: Stable CODE STATUS: Code Status: Full LONG-TERM: SNF STAY <30 DAYS: Yes POST DISCHARGE ORDERS: ACTIVITY ORDERS: Activity as tolerated WEIGHT BEARING STATUS: Full weight bearing BATHING ORDERS: No Tub Bath until see DIET AFTER DISCHARGE: Regular WOUND/INCISION CARE: Ice to area for comfort, Do not change dressing (maintain yang dressing intact) CHECKS AFTER DISCHARGE: COMMENTS: anticoagulation clinic to monitor Coumadin dosing FOLLOW-UP: PHYSICIAN FOLLOW-UP: Dr. Stroud 2 weeks from postop ANTICOAGULATION F/U NEEDED: per pharmacy anticoagulation clinic TREATMENT/EQUIPMENT ORDERS: ADAPTIVE EQUIPMENT NEEDED: Front wheeled walker Physical Therapy For: Evalulation/Treatment Occupational Therapy For: Evaluation/Treatment DISCHARGE MEDICATIONS: Home Meds Reported Medications Divalproex Sodium (DEPAKOTE) 500 Mg Tablet., 2 TAB PO HS for BIPOLAR, #60 TAB 1 Refill 07/31/18 Benztropine Mesylate (BENZTROPINE MESYLATE) 1 Mg Tablet, 1 TAB PO BID for ANTIPSYCHOTIC, #60 TAB 07/31/18 Losartan/Hydrochlorothiazide (LOSARTAN-HCTZ 50-12.5 MG TAB) 1 Each Tablet, 1 TAB PO DAILY for HTN, #30 TAB 5 Refills 07/31/18 Haloperidol Lactate (HALOPERIDOL LACTATE) 2 Mg/1 Ml Oral.conc, 2 MG PO BID for ANXIETY, MISC 07/31/18 Clorazepate Dipotassium (CLORAZEPATE DIPOTASSIUM) 7.5 Mg Tablet, 7.5 MG PO BID PRN for ANXIETY / AGITATION, TAB 07/31/18 Clonazepam (CLONAZEPAM) 0.5 Mg Tablet, 1 TAB PO BID for ANXIETY, #60 TAB 1 Refil l 07/31/18 Amlodipine Besylate (AMLODIPINE BESYLATE) 5 Mg Tablet, 5 MG PO DAILY for HTN, TAB 07/31/18 Duloxetine Hcl (CYMBALTA) 60 Mg Capsule., 1 CAP PO DAILY for DEPRESSION, #90 CAP 3 Refills 07/31/18 SHERI STROUD MD Aug 17, 2018 09:34
--- NOTE | 2018-08-17 10:12 | NUR ---
Pharmacy Warfarin Dosing Note S:Pharmacy consulted to assist with anticoagulation therapy started 08/14/18 with target INR: 1.6 - 2.5 O:FLEX REYES is a 58 year old F with TKA LABS: Last INR: 1.9 Last HGB: 11.5 Last HCT: 34.3 Last PLT: - Last dose of Hold given on 08/16/18 at 1627 Previous Regimen: Vitamin K given: N Drug Interaction Changes: Ongoing Drug Interactions: A:INR of 1.9 is within desired range. Target range for this patient is: 1.6 - 2.5 P: Warfarin dose: 2 mg Prior to Discharge Bridge Therapy: Next INR due TOMORROW. Pharmacy anticoagulation service will continue to follow. JADA DEL CASTILLO [facility], 08/17/18 1018
--- NOTE | 2018-08-17 13:24 | NUR ---
Spoke with Madyson TALAVERA at [facility] and gave report.
[2018-08-17] MEDS: amLODIPine BESYLATE 5 MG TABLET PO SCH (13:36)
[2018-08-17 13:39] VITALS: BP 110/59
[2018-08-17] MEDS ORDERED: WARFARIN 2 MG TABLET. PO ONE (14:00)
--- NOTE | 2018-08-17 14:50 | NUR ---
Discharge to [facility] by w/c caesar. Mother is aware of transfer.
[2018-08-18] MEDS ORDERED: WARFARIN 2 MG TABLET. PO SCH (16:00)
--- NOTE | 2018-08-20 20:00 | DS ---
DATE OF DISCHARGE: 08/17/2018 DISPOSITION: [facility], [facility]. PRINCIPAL DIAGNOSIS: Degenerative joint disease, right knee. PROCEDURE: Right total knee arthroplasty. DISPOSITION MEDICATIONS: Include resumption of home medications. Additional medications include oxycodone 5 mg p.o. q. 4 hours p.r.n., dispensed #80, Coumadin as directed by anticoagulation clinic. Weightbearing as tolerated, standard total knee protocol. Maintain ALLYN dressing. Follow up with Dr. Stroud in 2 weeks. BRIEF DESCRIPTION OF HOSPITAL COURSE: The patient underwent uncomplicated right total knee arthroplasty. Postoperatively, was noted to be getting up and around, but due to her home situation and need for further assistance, was slated for [facility] facility. Hemoglobin and other vital signs were otherwise stable throughout her stay and she was discharged to [facility] in stable condition. SHERI STROUD MD DR: NORA/jerod JOB#: [id number] / [id number]
== END 2018-08-17 14:50 | DRG 470 ==
LOC: OPSVCIP 06:05 → 4 SOUTHEST 12:30
PROVIDERS: ADMIT Orthopaedic Surgery; ATTEND Orthopaedic Surgery
PROC: 0SRC069 Replacement of Right Knee Joint with Oxidized Zirconium on Polyethylene Synthetic Substitute, Cemented, Open Approach (ICD-10-PCS; principal; 2018-08-14 07:30)
DX: M17.11 Unilateral primary osteoarthritis, right knee (principal); Z68.42 Body mass index [BMI] 45.0-49.9, adult; I10 Essential (primary) hypertension; E66.9 Obesity, unspecified; Z90.49 Acquired absence of other specified parts of digestive tract
CPT/HCPCS: 36415; 73560; 82962; 85014; 85018; 85610; 86850; 86900; 86901; 88304; 88311; A7015; C1713; J0171; J0690; J1100; J1885; J2001; J2250; J2270; J2370; J2405; J2704; J2795; J3010; J3490; J7030; J7120; 97110; 97116; 97150; 97530; 97535; C1769

== ENCOUNTER 2018-11-14 02:11 | Inpatient (IN) | payer OTHER, MEDICAID ==
[~2018-11-14] VITALS: Ht 162.6 cm; Wt 116.8 kg
[~2018-11-14 02:11] MED LIST changes: +CLON-77 PO; -CLON0.5T11 PO; -HYDROcodone/APAP 7.5/325MG 1 TAB TABLET PO PRN; +OXYC5CAP PO; -TRANEXAMIC ACID 1,000 MG in IV NS 50ML -- 1ST BAG INJ ONE; +WARF1TAB74 PO; -ceFAZolin SODIUM 3 GM in IV DEXTROSE 5% 100ML 100 ML IV PRN
[2018-11-14 03:38] LABS: BASO % 0 % (0-3); EOS # 0.1 x10^3/uL (0.0-0.7); EOS % 1 % (0-3); HEMATOCRIT 35.5 % (36.0-47.0); HEMOGLOBIN 11.8 g/dL (12.0-15.5); LYMPH # 2.5 x10^3/uL (1.0-4.8); LYMPH % 29 % (24-48); MEAN CORPUSCULAR HEMOGLOBIN 27 pg (25-35); MEAN CORPUSCULAR HGB CONC 33 g/dL (31-37); MEAN CORPUSCULAR VOLUME 80 fL (79-100); MONO # 0.6 x10^3/uL (0.0-1.1); MONO % 7 % (0-9); NEUT # 5.5 x10^3/uL (1.8-7.7); NEUT % 63 % (31-73); PLATELET COUNT 397 x10^3/uL (140-400); RED BLOOD COUNT 4.45 x10^6/uL (3.50-5.40); RED CELL DISTRIBUTION WIDTH 16.3 % (11.5-14.5); WHITE BLOOD COUNT 8.8 x10^3/uL (4.0-11.0)
--- NOTE | 2018-11-14 03:41 | PHYS DOC ---
Past Medical History Past Medical History: Anxiety, Hypertension, Schizophrenia Past Surgical History: Cholecystectomy, Knee Replacement, Other Additional Past Surgical Histo: HERNIA; R KNEE REPLACEMENT Alcohol Use: None Drug Use: None Adult General Chief Complaint Chief Complaint: MECHANICAL FALL [facility] HPI Patient is a 58 year old female who presents via EMS with complaining of 3 falls. Patient states she had right knee replacement 3 weeks ago and walking without walking and working. Patient states she wanted to go to the bathroom and had a fall 3 times from her bed without head injury or loss of consciousness. Patient states she started to have falls when her physical therapist stopped to visit her at home. Patient is a poor historian. Review of Systems Review of Systems Constitutional: Denies fever or chills [] Eyes: Denies change in visual acuity, redness, or eye pain [] HENT: Denies nasal congestion or sore throat [] Respiratory: Denies cough or shortness of breath [] Cardiovascular: No additional information not addressed in HPI [] GI: Denies abdominal pain, nausea, vomiting, bloody stools or diarrhea [] : Denies dysuria or hematuria [] Musculoskeletal: Denies back pain or joint pain [] Integument: Denies rash or skin lesions [] Neurologic: Denies headache, focal weakness or sensory changes [] Endocrine: Denies polyuria or polydipsia [] All other systems were reviewed and found to be within normal limits, except as documented in this note. Current Medications Current Medications Allergies Allergies Allergies Coded Allergies Type Severity Reaction Last Updated Verified No Known Drug Allergies 08/14/18 No Physical Exam Physical Exam Constitutional: Well nourished, mild distress, non-toxic appearance, morbidly obese. [] HENT: Normocephalic, atraumatic. Eyes: PERRLA, EOMI, conjunctiva normal, no discharge. [] Neck: Normal range of motion, no tenderness, supple, no stridor. [] Cardiovascular:Heart rate regular rhythm, no murmur [] Lungs & Thorax: Bilateral breath sounds clear to auscultation [] Abdomen: Bowel sounds normal, soft, no tenderness, no masses, no pulsatile masses. [] Skin: Warm, dry, no erythema, no rash. [] Back: No tenderness, no CVA tenderness. [] Extremities: No tenderness, no cyanosis, no clubbing, ROM intact, no edema. [] Neurologic: Alert and oriented X 3, no focal deficits noted. [] Current Patient Data Vital Signs Vital Signs Date Time Temp Pulse Resp B/P (MAP) Pulse Ox O2 Delivery O2 Flow Rate FiO2 11/14/18 02:15 97.4 90 16 119/69 (86) 95 Room Air 97.4 Lab Values Laboratory Tests Test 11/14/18 02:52 11/14/18 03:20 Glucose (Fingerstick) 108 mg/dL (70-99) H White Blood Count 8.8 x10^3/uL (4.0-11.0) Red Blood Count 4.45 x10^6/uL (3.50-5.40) Hemoglobin 11.8 g/dL (12.0-15.5) L Hematocrit 35.5 % (36.0-47.0) L Mean Corpuscular Volume 80 fL (79-100) Mean Corpuscular Hemoglobin 27 pg (25-35) Mean Corpuscular Hemoglobin Concent 33 g/dL (31-37) Red Cell Distribution Width 16.3 % (11.5-14.5) H Platelet Count 397 x10^3/uL (140-400) Neutrophils (%) (Auto) 63 % (31-73) Lymphocytes (%) (Auto) 29 % (24-48) Monocytes (%) (Auto) 7 % (0-9) Eosinophils (%) (Auto) 1 % (0-3) Basophils (%) (Auto) 0 % (0-3) Neutrophils # (Auto) 5.5 x10^3/uL (1.8-7.7) Lymphocytes # (Auto) 2.5 x10^3/uL (1.0-4.8) Monocytes # (Auto) 0.6 x10^3/uL (0.0-1.1) Eosinophils # (Auto) 0.1 x10^3/uL (0.0-0.7) Basophils # (Auto) 0.0 x10^3/uL (0.0-0.2) Sodium Level 141 mmol/L (136-145) Potassium Level 3.1 mmol/L (3.5-5.1) L Chloride Level 101 mmol/L (98-107) Carbon Dioxide Level 30 mmol/L (21-32) Anion Gap 10 (6-14) Blood Urea Nitrogen 22 mg/dL (7-20) H Creatinine 0.9 mg/dL (0.6-1.0) Estimated GFR (Cockcroft-Gault) 78.4 BUN/Creatinine Ratio 24 (6-20) H Glucose Level 119 mg/dL (70-99) H Calcium Level 9.0 mg/dL (8.5-10.1) Magnesium Level 1.9 mg/dL (1.8-2.4) Total Bilirubin 0.3 mg/dL (0.2-1.0) Aspartate Amino Transferase (AST) 34 U/L (15-37) Alanine Aminotransferase (ALT) 18 U/L (14-59) Alkaline Phosphatase 121 U/L (46-116) H Creatine Kinase 973 U/L (26-192) H Troponin I Quantitative < 0.017 ng/mL (0.000-0.055) NZ-Qjw-I-Type Natriuretic Peptide 81 pg/mL (0-124) Total Protein 7.0 g/dL (6.4-8.2) Albumin 3.0 g/dL (3.4-5.0) L Albumin/Globulin Ratio 0.8 (1.0-1.7) L Laboratory Tests 11/14/18 03:20 Laboratory Tests 11/14/18 03:20 EKG EKG EKG interpreted by me. EKG at 0220 showed normal sinus rhythm at rate of 77, normal VA and QT intervals, no acute ST and T-wave elevation. Radiology/Procedures Radiology/Procedures [][facility] [address] [place], [place] [id number] IMAGING REPORT Signed PATIENT: FLEX REYES LACCOUNT: [id number] : 1960 LOCATION: ER AGE: 58 SEX: F EXAM STATUS: REG ER ORD. PHYSICIAN: MUKESH CONTRERAS MD REASON: frequent falls PROCEDURE: PORTABLE CHEST 1V AP chest. HISTORY: Frequent falls AP view was taken of the chest. Lungs are clear. Heart is normal in size. There is no pleural effusion. IMPRESSION: 1. No acute chest disease. Electronically signed by: Cyril Pinzon MD (11/14/2018 3:55 AM) [facility] DICTATED and SIGNED BY: CYRIL PINZON MD DATE: 11/14/18 0358 [facility] [address] [place] [address] IMAGING REPORT Signed PATIENT: FLEX REYES LACCOUNT: [id number] : 1960 LOCATION: ER AGE: 58 SEX: F EXAM STATUS: REG ER ORD. PHYSICIAN: MUKESH CONTRERAS MD REASON: frequent falls PROCEDURE: CT HEAD WO CONTRAST CT brain without contrast. HISTORY: Frequent falls CT scan of brain was done without contrast. There is mucosal thickening in the left axillary and ethmoid sinuses. Ventricles are normal in size. There is no mass or shift of the midline. An acute CVA is not identified. There is no intracranial hemorrhage or subdural hematoma. IMPRESSION: 1. No intracranial hemorrhage or acute finding noted. Electronically signed by: Cyril Pinzon MD (11/14/2018 4:05 AM) [facility] DICTATED and SIGNED BY: CYRIL PINZON MD DATE: 11/14/18 0405 Course & Med Decision Making Course & Med Decision Making Pertinent Labs and Imaging studies reviewed. (See chart for details) Evaluation of patient in ER showed 58-year-old female patient with history of recent lower extremity surgery and frequent falls unremarkable CT and chest x- ray. Labs showed mild hypokalemia and increase of CPK and BUN/creatinine and patient treated with IV fluid. Lives at home and unable to ambulate amended to ER. Plan to admit patient for PT evaluation and possible rehabilitation placem ent. Dr. Smith was informed at 0 420 and he stated that he terminated the patient's care from his office. Plan to admit patient to hospitalist. Patient requiring admission for further evaluation and treatment. Discussed with Dr. Leblanc who is in agreement with admission. Discussed findings and plan with patient and family, who acknowledge understanding and agreement. Dragon Disclaimer Dragon Disclaimer This electronic medical record was generated, in whole or in part, using a voice recognition dictation system. Departure Departure Impression: Primary Impression: Frequent falls Additional Impressions: Hypokalemia Rhabdomyolysis Morbid obesity Disposition: ADMITTED INPATIENT Admitting Physician: [facility] (Dr Leblanc Accepted Admission) Condition: IMPROVED Referrals: OLIVIA SMITH MD (PCP) Problem Qualifiers Additional Impressions: Rhabdomyolysis Rhabdomyolysis type: traumatic Encounter type: subsequent encounter Qualified Codes: T79.6XXD - Traumatic ischemia of muscle, subsequent encounter MUKESH CONTRERAS MD Nov 14, 2018 03:41
--- NOTE | 2018-11-14 03:58 | RAD ---
AP chest. HISTORY: Frequent falls AP view was taken of the chest. Lungs are clear. Heart is normal in size. There is no pleural effusion. IMPRESSION: 1. No acute chest disease. Electronically signed by: Cyril Pinzon MD (11/14/2018 3:55 AM) [facility]
[2018-11-14 04:01] LABS: ALBUMIN/GLOBULIN RATIO 0.8 (1.0-1.7); CREATININE 0.9 mg/dL (0.6-1.0); GFR 78.4; MAGNESIUM 1.9 mg/dL (1.8-2.4); POTASSIUM 3.1 mmol/L (3.5-5.1); TOTAL BILIRUBIN 0.3 mg/dL (0.2-1.0)
--- NOTE | 2018-11-14 04:08 | RAD ---
CT brain without contrast. HISTORY: Frequent falls CT scan of brain was done without contrast. There is mucosal thickening in the left axillary and ethmoid sinuses. Ventricles are normal in size. There is no mass or shift of the midline. An acute CVA is not identified. There is no intracranial hemorrhage or subdural hematoma. IMPRESSION: 1. No intracranial hemorrhage or acute finding noted. Electronically signed by: Cyril Pinzon MD (11/14/2018 4:05 AM) [facility]
[2018-11-14] MEDS ORDERED: IV NORMAL SALINE 1000ML BAG 1,000 ML IV ONE (04:30)
[2018-11-14] MEDS ORDERED: POTASSIUM CHLORIDE 20 MEQ TABLET.ER. PO ONE (04:30)
--- NOTE | 2018-11-14 05:15 | EKG ---
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
--- NOTE | 2018-11-14 06:01 | NUR ---
The patient, FLEX REYES, 58 y/o, F admitted by KARI TREADWELL III, DO, was given written information regarding hospital policies, unit procedures and contact persons. Valuables were checked and left with her.
[2018-11-14 06:10] VITALS: BP 110/63
[2018-11-14 07:00] VITALS: BP 115/71
--- NOTE | 2018-11-14 08:32 | PDOC1 ---
History and Physical Date of Admission Date of Admission DATE: 11/14/18 TIME: 08:31 History of Present Illness History of Present Illness Ms Avalos is a 58 year old female w/ PMHx Prediabetes, Anxiety, Hypertension, Schizophrenia who presents via EMS with complaining of 3 falls. Patient states she had right knee replacement 3 weeks ago (08/14/2018) and walking without walking and working. Patient states she wanted to go to the bathroom and had a fall 3 times from her bed without head injury or loss of consciousness. Patient states she started to have falls when her physical therapist stopped to visit her at home. Patient is a poor historian. Her mother comes bedside to discuss that patient has been living with her daughter and grand-daughter and her self-care has declined and she lays in bed most of the day. She is worried about this being a depressive episode, notes she was just at a psychiatrist appointment, but is concerned the patient may not be taking her meds due to her listlessness. She was noted with CPK in 900s and potassium of 3.1. Not walking, so admitted for further care. Past Medical History Cardiovascular: HTN Pulmonary: No pertinent hx GI: No pertinent hx Heme/Onc: No pertinent hx Hepatobiliary: No pertinent hx Psych: Anxiety, Schizophrenia Infectious disease: No pertinent hx ENT: No pertinent hx Renal/: No pertinent hx Endocrine: No pertinent hx Dermatology: No pertinent hx Past Surgical History Past Surgical History: Total knee replacement (Right) Family History Family History: Depression, Diabetes, High Cholestrol, Hypertension Social History Smoke: No ALCOHOL: none Drugs: None Current Problem List Problem List Problems Medical Problems: (1) Frequent falls Status: Acute (2) Hypokalemia Status: Acute (3) Morbid obesity Status: Acute (4) Rhabdomyolysis Status: Acute Current Medications Current Medications Current Medications Potassium Chloride (Klor-Con) 40 meq 1X ONCE PO ; Start 11/14/18 at 04:30; Stop 11/14/18 at 05:08; Status DC Sodium Chloride 1,000 ml @ 1,000 mls/hr 1X ONCE IV ; Start 11/14/18 at 04:30; Stop 11/14/18 at 05:29; Status DC Sodium Chloride 1,000 ml @ 100 mls/hr Q10H IV ; Start 11/14/18 at 05:00; Stop 11/15/18 at 04:59 Active Scripts Active Coumadin (Warfarin Sodium) 1 Mg Tablet 1 Mg PO DAILY Oxycodone Hcl 5 Mg Capsule 5 Mg PO PRN Q4HRS PRN Reported Depakote (Divalproex Sodium) 500 Mg Tablet.dr 2 Tab PO HS Benztropine Mesylate 1 Mg Tablet 1 Tab PO BID Losartan-Hctz 50-12.5 Mg Tab (Losartan/Hydrochlorothiazide) 1 Each Tablet 1 Tab PO DAILY Haloperidol Lactate 2 Mg/1 Ml Oral.conc 2 Mg PO BID Clorazepate Dipotassium 7.5 Mg Tablet 7.5 Mg PO BID PRN Clonazepam 0.5 Mg Tablet 1 Tab PO BID Amlodipine Besylate 5 Mg Tablet 5 Mg PO DAILY Cymbalta (Duloxetine Hcl) 60 Mg Capsule.dr 1 Cap PO DAILY Allergies Allergies: Coded Allergies: No Known Drug Allergies (Unverified , 08/14/18) ROS General: YES: Fatigue, Malaise; No: Chills, Night Sweats, Appetite, Other PSYCHOLOGICAL ROS: YES: Anxiety, Depression; No: Behavioral Disorder, Concentration difficultie, Decreased libido, Disorientation, Hallucinations, Hostility, Irritablity, Memory difficulties, Mood Swings, Obsessive thoughts, Physical abuse, Sexual abuse, Sleep disturbances, Suicidal ideation, Other Eyes: No Blurry vision, No Decreased vision, No Double vision, No Dry eyes, No Excessive tearing, No Eye Pain, No Itchy Eyes, No Loss of vision, No Photophobia, No Scotomata, No Uses contacts, No Uses glasses, No Other HEENT: No: Heacaches, Visual Changes, Hearing change, Nasal congestion, Nasal discharge, Oral lesions, Sinus pain, Sore Throat, Epistaxis, Sneezing, Snoring, Tinnitus, Vertigo, Vocal changes, Other ALLERGY AND IMMUNOLOGY: No: Hives, Insect Bite Sensitivity, Itchy/Watery Eyes, Nasal Congestion, Post Nasal Drip, Seasonal Allergies, Other Hematological and Lymphatic: No: Bleeding Problems, Blood Clots, Blood Transfusions, Brusing, Night Sweats, Pallor, Swollen Lymph Nodes, Other ENDOCRINE: No: Breast Changes, Galactorrhea, Hair Pattern Changes, Hot Flashes, Malaise/lethargy, Mood Swings, Palpitations, Polydipsia/polyuria, Skin Changes, Temperature Intolerance, Unexpected Weight Changes, Other Breast: No New/Changing Breast Lumps, No Nipple changes, No Nipple discharge, No Other Respiratory: No: Cough, Hemoptysis, Orthopnea, Pleuritic Pain, Shortness of breath, SOB with excertion, Sputum Changes, Stridor, Tachypnea, Wheezing, Other Cardiovascular: No Chest Pain, No Palpitations, No Orthopnea, No Paroxysmal Noc. Dyspnea, No Edema, No Lt Headedness, No Other Gastrointestinal: No Nausea, No Vomiting, No Abdominal Pain, No Diarrhea, No Constipation, No Melena, No Hematochezia, No Other Genitourinary: No Dysuria, No Frequency, No Incontinence, No Hematuria, No Retention, No Discharge, No Urgency, No Pain, No Flank Pain, No Other, No , No , No , No , No , No , No Musculoskeletal: Yes Gait Disturbance, Yes Joint Pain, Yes Muscular Weakness; No Joint Stiffness, No Joint Swelling, No Muscle Pain, No Pain In:, No Swelling In:, No Other Neurological: Yes Gait Disturbance; No Behavorial Changes, No Bowel/Bladder ControlChng, No Confusion, No Dizziness, No Headaches, No Impaired Coord/balance, No Memory Loss, No Numbness/Tingling, No Seizures, No Speech Problems, No Tremors, No Visual Changes, No Weakness, No Other Skin: No Dry Skin, No Eczema, No Hair Changes, No Lumps, No Mole Changes, No Mottling, No Nail Changes, No Pruritus, No Rash, No Skin Lesion Changes, No Other, No Acne Physical Exam General: Alert, Oriented X3, Cooperative, No acute distress HEENT: Atraumatic, PERRLA, EOMI, Mucous membr. moist/pink Lungs: Clear to auscultation, Normal air movement Heart: S1S2, RRR, no gallops, no murmurs Abdomen: Normal bowel sounds, Soft, No tenderness, No hepatosplenomegaly, No masses Extremities: No clubbing, No cyanosis, No edema, Normal pulses, No tenderness/swelling Skin: No rashes, No breakdown, No significant lesion Neuro: Normal gait, Normal speech, Strength at 5/5 X4 ext, Normal tone, Sensation intact, Cranial nerves 3-12 NL, Reflexes 2+ Psych/Mental Status: Other (Depressed mood, dysthymic) Vitals Vitals Vital Signs Date Time Temp Pulse Resp B/P (MAP) Pulse Ox O2 Delivery O2 Flow Rate FiO2 11/14/18 07:00 97.4 74 16 115/71 (86) 97 Room Air 97.4 Labs Labs Laboratory Tests Test 11/14/18 02:52 11/14/18 03:20 Glucose (Fingerstick) 108 mg/dL (70-99) White Blood Count 8.8 x10^3/uL (4.0-11.0) Red Blood Count 4.45 x10^6/uL (3.50-5.40) Hemoglobin 11.8 g/dL (12.0-15.5) Hematocrit 35.5 % (36.0-47.0) Mean Corpuscular Volume 80 fL (79-100) Mean Corpuscular Hemoglobin 27 pg (25-35) Mean Corpuscular Hemoglobin Concent 33 g/dL (31-37) Red Cell Distribution Width 16.3 % (11.5-14.5) Platelet Count 397 x10^3/uL (140-400) Neutrophils (%) (Auto) 63 % (31-73) Lymphocytes (%) (Auto) 29 % (24-48) Monocytes (%) (Auto) 7 % (0-9) Eosinophils (%) (Auto) 1 % (0-3) Basophils (%) (Auto) 0 % (0-3) Neutrophils # (Auto) 5.5 x10^3/uL (1.8-7.7) Lymphocytes # (Auto) 2.5 x10^3/uL (1.0-4.8) Monocytes # (Auto) 0.6 x10^3/uL (0.0-1.1) Eosinophils # (Auto) 0.1 x10^3/uL (0.0-0.7) Basophils # (Auto) 0.0 x10^3/uL (0.0-0.2) Sodium Level 141 mmol/L (136-145) Potassium Level 3.1 mmol/L (3.5-5.1) Chloride Level 101 mmol/L (98-107) Carbon Dioxide Level 30 mmol/L (21-32) Anion Gap 10 (6-14) Blood Urea Nitrogen 22 mg/dL (7-20) Creatinine 0.9 mg/dL (0.6-1.0) Estimated GFR (Cockcroft-Gault) 78.4 BUN/Creatinine Ratio 24 (6-20) Glucose Level 119 mg/dL (70-99) Calcium Level 9.0 mg/dL (8.5-10.1) Magnesium Level 1.9 mg/dL (1.8-2.4) Total Bilirubin 0.3 mg/dL (0.2-1.0) Aspartate Amino Transf (AST/SGOT) 34 U/L (15-37) Alanine Aminotransferase (ALT/SGPT) 18 U/L (14-59) Alkaline Phosphatase 121 U/L (46-116) Creatine Kinase 973 U/L (26-192) Troponin I Quantitative < 0.017 ng/mL (0.000-0.055) RX-Mpg-G-Type Natriuretic Peptide 81 pg/mL (0-124) Total Protein 7.0 g/dL (6.4-8.2) Albumin 3.0 g/dL (3.4-5.0) Albumin/Globulin Ratio 0.8 (1.0-1.7) Laboratory Tests Test 11/14/18 02:52 11/14/18 03:20 Glucose (Fingerstick) 108 mg/dL (70-99) White Blood Count 8.8 x10^3/uL (4.0-11.0) Red Blood Count 4.45 x10^6/uL (3.50-5.40) Hemoglobin 11.8 g/dL (12.0-15.5) Hematocrit 35.5 % (36.0-47.0) Mean Corpuscular Volume 80 fL (79-100) Mean Corpuscular Hemoglobin 27 pg (25-35) Mean Corpuscular Hemoglobin Concent 33 g/dL (31-37) Red Cell Distribution Width 16.3 % (11.5-14.5) Platelet Count 397 x10^3/uL (140-400) Neutrophils (%) (Auto) 63 % (31-73) Lymphocytes (%) (Auto) 29 % (24-48) Monocytes (%) (Auto) 7 % (0-9) Eosinophils (%) (Auto) 1 % (0-3) Basophils (%) (Auto) 0 % (0-3) Neutrophils # (Auto) 5.5 x10^3/uL (1.8-7.7) Lymphocytes # (Auto) 2.5 x10^3/uL (1.0-4.8) Monocytes # (Auto) 0.6 x10^3/uL (0.0-1.1) Eosinophils # (Auto) 0.1 x10^3/uL (0.0-0.7) Basophils # (Auto) 0.0 x10^3/uL (0.0-0.2) Sodium Level 141 mmol/L (136-145) Potassium Level 3.1 mmol/L (3.5-5.1) Chloride Level 101 mmol/L (98-107) Carbon Dioxide Level 30 mmol/L (21-32) Anion Gap 10 (6-14) Blood Urea Nitrogen 22 mg/dL (7-20) Creatinine 0.9 mg/dL (0.6-1.0) Estimated GFR (Cockcroft-Gault) 78.4 BUN/Creatinine Ratio 24 (6-20) Glucose Level 119 mg/dL (70-99) Calcium Level 9.0 mg/dL (8.5-10.1) Magnesium Level 1.9 mg/dL (1.8-2.4) Total Bilirubin 0.3 mg/dL (0.2-1.0) Aspartate Amino Transf (AST/SGOT) 34 U/L (15-37) Alanine Aminotransferase (ALT/SGPT) 18 U/L (14-59) Alkaline Phosphatase 121 U/L (46-116) Creatine Kinase 973 U/L (26-192) Troponin I Quantitative < 0.017 ng/mL (0.000-0.055) IQ-Ixd-R-Type Natriuretic Peptide 81 pg/mL (0-124) Total Protein 7.0 g/dL (6.4-8.2) Albumin 3.0 g/dL (3.4-5.0) Albumin/Globulin Ratio 0.8 (1.0-1.7) VTE Prophylaxis Ordered VTE Prophylaxis Devices: No VTE Pharmacological Prophylaxi: Yes Assessment/Plan Assessment/Plan A/P: Frequent falls - uncertain etiology. her knee replacement looks great. Good ROM. Her mental status seems to be playing a strong role. Will have therapy work with her. She may need neuro consultation Hypokalemia - will check mag level, replace. Hold thiazide for now. cont cozaar Rhabdomyolysis - likely traumatic from falls, no signs of this being medication induced. Will trend LFTS and monitor renal function. Continue aggressive hydration, monitor CK Prediabetes - A1c is 6. She is a reasonably good candidate for metformin per 2 014 AACE/JANNETTE guidelines, but does not want to start a new med today Hypertension - cont home meds Schizophrenia - cont haldol regimen. Her sx seem well controlled today, but depression seems to be present. Has good PCP and psych f/u. Will check TSH Depression with Anxiety - will cont low dose benzos, will cont SNRI treatment FEN - NSS + ADA diet PPX - SCDs FULL CODE Dispo - inpatient for frequent falls, inability to walk. She may need temporary SNF placement for rehabilitation SHAUN ROSE MD Nov 14, 2018 08:32
[2018-11-14] MEDS: IV NORMAL SALINE 1000ML BAG 1,000 ML IV SCH (09:30)
[2018-11-14 11:00] VITALS: BP 108/67
[2018-11-14] MEDS ORDERED: LORazepam 1 MG TABLET PO PRN (12:00)
[2018-11-14 15:00] VITALS: BP 97/55
[2018-11-14] MEDS: DULoxetine HCL 30 MG CAPSULE.DR PO SCH (15:50)
[2018-11-14] MEDS: HALOPERIDOL 2 MG/ML ORAL.CONC. PO SCH ×2 (15:52→22:12)
[2018-11-14] MEDS: BENZTROPINE MESYLATE 1 MG TABLET. PO SCH ×2 (15:52→22:12)
[2018-11-14] MEDS: clonazePAM 0.5 MG TABLET PO SCH ×2 (15:52→22:12)
[2018-11-14] MEDS: LOSARTAN POTASSIUM 50 MG TABLET. PO SCH (15:58)
[2018-11-14] MEDS: hydroCHLOROthiazide 12.5 MG CAPSULE PO SCH (15:59)
[2018-11-14] MEDS: amLODIPine BESYLATE 5 MG TABLET PO SCH (16:00)
--- NOTE | 2018-11-14 16:01 | NUR ---
PATIENT RESTING QUIETLY IN BED AT THIS TIME, DENIES PAIN AND DISCOMFORT, PO. MEDS GIVEN BUT AMLODIPINE, LOSARTAN AND HYDROCHLOROTHIAZIDE GHELD AT THIS TIME DUE B/P LOW, VITALS ARE FOLLOWS; 97/55,97%,17,88,97.5. WILL MONITOR.
[2018-11-14 19:00] VITALS: BP 130/61
[2018-11-14] MEDS: DIVALPROEX DELAYED RELEASE 500 MG TABLET.DR. PO SCH (22:12)
[2018-11-14] MEDS ORDERED: IV DEXTROSE 5% 250 ML BAG. IV PRN (22:30)
[2018-11-14] MEDS ORDERED: DEXTROSE 50% 25 GM / 50ML DISP.SYRIN. IV PRN (22:30)
[2018-11-14 23:00] VITALS: BP 117/62
[2018-11-15] MEDS: ENOXAPARIN 40 MG/0.4 ML SYRINGE. SQ SCH ×2 (00:03→21:50)
[2018-11-15 03:00] VITALS: BP 105/62
[2018-11-15] MEDS: IV NORMAL SALINE 1000ML BAG 1,000 ML IV SCH ×2 (04:57→09:21)
[2018-11-15 07:00] VITALS: BP 130/74
[2018-11-15 07:55] LABS: ALBUMIN 2.7 g/dL (3.4-5.0); ALBUMIN/GLOBULIN RATIO 0.8 (1.0-1.7); CALCIUM 8.6 mg/dL (8.5-10.1); CREATININE 0.8 mg/dL (0.6-1.0); GFR 89.8; PHOSPHORUS 3.9 mg/dL (2.6-4.7); TOTAL BILIRUBIN 0.2 mg/dL (0.2-1.0)
[2018-11-15] MEDS: INSULIN LISPRO 300 UNITS/3 ML VIAL. SQ SCH ×3 (08:00→17:00)
[2018-11-15 08:07] LABS: POTASSIUM 3.5 mmol/L (3.5-5.1)
--- NOTE | 2018-11-15 08:16 | PDOC ---
PROGRESS NOTES Chief Complaint Chief Complaint A/P: Frequent falls - uncertain etiology. her knee replacement looks great. Good ROM. Her mental status seems to be playing a strong role. Will have therapy work with her. She may need neuro consultation Hypokalemia - will check mag level, replace. Hold thiazide for now. cont cozaar Rhabdomyolysis - likely traumatic from falls, no signs of this being medication induced. Will trend LFTS and monitor renal function. Continue aggressive hydration, monitor CK Prediabetes - A1c is 6. She is a reasonably good candidate for metformin per 2014 AACE/JANNETTE guidelines, but does not want to start a new med today Hypertension - cont home meds Schizophrenia - cont haldol regimen. Her sx seem well controlled today, but depression seems to be present. Has good PCP and psych f/u. Will check TSH Depression with Anxiety - will cont low dose benzos, will cont SNRI treatment FEN - NSS + ADA diet PPX - SCDs FULL CODE Dispo - inpatient for frequent falls, inability to walk. She may need temporary SNF placement for rehabilitation History of Present Illness History of Present Illness Ms Avalos is a 58 year old female w/ PMHx Prediabetes, Anxiety, Hypertension, Schizophrenia who presents via EMS with complaining of 3 falls. Patient states she had right knee replacement 3 weeks ago (08/14/2018) and walking without walking and working. Patient states she wanted to go to the bathroom and had a fall 3 times from her bed without head injury or loss of consciousness. Patient states she started to have falls when her physical therapist stopped to visit her at home. Patient is a poor historian. Her mother comes bedside to discuss that patient has been living with her daughter and grand-daughter and her self-care has declined and she lays in bed most of the day. She is worried about this being a depressive episode, notes she was just at a psychiatrist appointment, but is concerned the patient may not be taking her meds due to her listlessness. She was noted with CPK in 900s and potassium of 3.1. Not walking, so admitted for further care. She is feeling only slightly stronger. Depressed mood. Flat affect today. She is sliding down out of bed repeatedly. C/o LE weakness, no real pain. No CP or SOB. Plan: Placement may be necessary given her weakness and declined self-care Vitals Vitals Vital Signs Date Time Temp Pulse Resp B/P (MAP) Pulse Ox O2 Delivery O2 Flow Rate FiO2 11/15/18 03:00 98.0 83 18 105/62 (76) 97 Room Air 98.0 Physical Exam General: Alert, Oriented X3, Cooperative, No acute distress Abdomen: Normal bowel sounds, Soft, No tenderness, No hepatosplenomegaly, No masses Extremities: No clubbing, No cyanosis, No edema, Normal pulses, No tenderness/swelling Skin: No rashes, No breakdown, No significant lesion Labs LABS Laboratory Tests Test 11/15/18 06:30 Sodium Level 144 mmol/L (136-145) Potassium Level 3.5 mmol/L (3.5-5.1) Chloride Level 104 mmol/L (98-107) Carbon Dioxide Level 34 mmol/L (21-32) Anion Gap 6 (6-14) Blood Urea Nitrogen 15 mg/dL (7-20) Creatinine 0.8 mg/dL (0.6-1.0) Estimated GFR (Cockcroft-Gault) 89.8 BUN/Creatinine Ratio 19 (6-20) Glucose Level 88 mg/dL (70-99) Calcium Level 8.6 mg/dL (8.5-10.1) Phosphorus Level 3.9 mg/dL (2.6-4.7) Magnesium Level 2.0 mg/dL (1.8-2.4) Total Bilirubin 0.2 mg/dL (0.2-1.0) Aspartate Amino Transf (AST/SGOT) 27 U/L (15-37) Alanine Aminotransferase (ALT/SGPT) 18 U/L (14-59) Alkaline Phosphatase 114 U/L (46-116) Creatine Kinase 543 U/L (26-192) Total Protein 6.0 g/dL (6.4-8.2) Albumin 2.7 g/dL (3.4-5.0) Albumin/Globulin Ratio 0.8 (1.0-1.7) Assessment and Plan Assessmemt and Plan Problems Medical Problems: (1) Frequent falls Status: Acute (2) HTN (hypertension) Status: Chronic (3) Hypokalemia Status: Acute (4) Morbid obesity Status: Acute (5) Rhabdomyolysis Status: Acute (6) Schizophrenia Status: Chronic Comment Review of Relevant I have reviewed the following items kennedy (where applicable) has been applied. Labs Laboratory Tests Test 11/14/18 02:52 11/14/18 03:20 11/15/18 06:30 Glucose (Fingerstick) 108 mg/dL (70-99) White Blood Count 8.8 x10^3/uL (4.0-11.0) Red Blood Count 4.45 x10^6/uL (3.50-5.40) Hemoglobin 11.8 g/dL (12.0-15.5) Hematocrit 35.5 % (36.0-47.0) Mean Corpuscular Volume 80 fL (79-100) Mean Corpuscular Hemoglobin 27 pg (25-35) Mean Corpuscular Hemoglobin Concent 33 g/dL (31-37) Red Cell Distribution Width 16.3 % (11.5-14.5) Platelet Count 397 x10^3/uL (140-400) Neutrophils (%) (Auto) 63 % (31-73) Lymphocytes (%) (Auto) 29 % (24-48) Monocytes (%) (Auto) 7 % (0-9) Eosinophils (%) (Auto) 1 % (0-3) Basophils (%) (Auto) 0 % (0-3) Neutrophils # (Auto) 5.5 x10^3/uL (1.8-7.7) Lymphocytes # (Auto) 2.5 x10^3/uL (1.0-4.8) Monocytes # (Auto) 0.6 x10^3/uL (0.0-1.1) Eosinophils # (Auto) 0.1 x10^3/uL (0.0-0.7) Basophils # (Auto) 0.0 x10^3/uL (0.0-0.2) Sodium Level 141 mmol/L (136-145) 144 mmol/L (136-145) Potassium Level 3.1 mmol/L (3.5-5.1) 3.5 mmol/L (3.5-5.1) Chloride Level 101 mmol/L (98-107) 104 mmol/L (98-107) Carbon Dioxide Level 30 mmol/L (21-32) 34 mmol/L (21-32) Anion Gap 10 (6-14) 6 (6-14) Blood Urea Nitrogen 22 mg/dL (7-20) 15 mg/dL (7-20) Creatinine 0.9 mg/dL (0.6-1.0) 0.8 mg/dL (0.6-1.0) Estimated GFR (Cockcroft-Gault) 78.4 89.8 BUN/Creatinine Ratio 24 (6-20) 19 (6-20) Glucose Level 119 mg/dL (70-99) 88 mg/dL (70-99) Calcium Level 9.0 mg/dL (8.5-10.1) 8.6 mg/dL (8.5-10.1) Magnesium Level 1.9 mg/dL (1.8-2.4) 2.0 mg/dL (1.8-2.4) Total Bilirubin 0.3 mg/dL (0.2-1.0) 0.2 mg/dL (0.2-1.0) Aspartate Amino Transf (AST/SGOT) 34 U/L (15-37) 27 U/L (15-37) Alanine Aminotransferase (ALT/SGPT) 18 U/L (14-59) 18 U/L (14-59) Alkaline Phosphatase 121 U/L (46-116) 114 U/L (46-116) Creatine Kinase 973 U/L (26-192) 543 U/L (26-192) Troponin I Quantitative < 0.017 ng/mL (0.000-0.055) HS-Oyo-I-Type Natriuretic Peptide 81 pg/mL (0-124) Total Protein 7.0 g/dL (6.4-8.2) 6.0 g/dL (6.4-8.2) Albumin 3.0 g/dL (3.4-5.0) 2.7 g/dL (3.4-5.0) Albumin/Globulin Ratio 0.8 (1.0-1.7) 0.8 (1.0-1.7) Thyroid Stimulating Hormone (TSH) 1.516 uIU/mL (0.358-3.74) Phosphorus Level 3.9 mg/dL (2.6-4.7) Laboratory Tests Test 11/15/18 06:30 Sodium Level 144 mmol/L (136-145) Potassium Level 3.5 mmol/L (3.5-5.1) Chloride Level 104 mmol/L (98-107) Carbon Dioxide Level 34 mmol/L (21-32) Anion Gap 6 (6-14) Blood Urea Nitrogen 15 mg/dL (7-20) Creatinine 0.8 mg/dL (0.6-1.0) Estimated GFR (Cockcroft-Gault) 89.8 BUN/Creatinine Ratio 19 (6-20) Glucose Level 88 mg/dL (70-99) Calcium Level 8.6 mg/dL (8.5-10.1) Phosphorus Level 3.9 mg/dL (2.6-4.7) Magnesium Level 2.0 mg/dL (1.8-2.4) Total Bilirubin 0.2 mg/dL (0.2-1.0) Aspartate Amino Transf (AST/SGOT) 27 U/L (15-37) Alanine Aminotransferase (ALT/SGPT) 18 U/L (14-59) Alkaline Phosphatase 114 U/L (46-116) Creatine Kinase 543 U/L (26-192) Total Protein 6.0 g/dL (6.4-8.2) Albumin 2.7 g/dL (3.4-5.0) Albumin/Globulin Ratio 0.8 (1.0-1.7) Medications Current Medications Potassium Chloride (Klor-Con) 40 meq 1X ONCE PO ; Start 11/14/18 at 04:30; Stop 11/14/18 at 05:08; Status DC Sodium Chloride 1,000 ml @ 1,000 mls/hr 1X ONCE IV ; Start 11/14/18 at 04:30; Stop 11/14/18 at 05:29; Status DC Sodium Chloride 1,000 ml @ 100 mls/hr Q10H IV Last administered on 11/15/18at 04:57; Start 11/14/18 at 05:00; Stop 11/15/18 at 04:59; Status DC Amlodipine Besylate (Norvasc) 5 mg DAILY PO ; Start 11/14/18 at 12:00 Benztropine Mesylate (Cogentin) 1 mg BID PO Last administered on 11/14/18at 22:13; Start 11/14/18 at 12:00 Clonazepam (KlonoPIN) 0.5 mg BID PO Last administered on 11/14/18at 22:13; Start 11/14/18 at 12:00 Divalproex Sodium (Depakote) 1,000 mg HS PO Last administered on 11/14/18at 22:13; Start 11/14/18 at 21:00 Haloperidol Lactate (HALDOL 2mg ORAL CONC) 2 mg BID PO Last administered on 11/14/18at 22:13; Start 11/14/18 at 12:00 Lorazepam (Ativan) 1 mg PRN BID PRN PO ANXIETY / AGITATION; Start 11/14/18 at 12:00 Duloxetine HCl (Cymbalta) 60 mg DAILY PO Last administered on 11/14/18at 15:58; Start 11/14/18 at 12:00 Losartan Potassium (Cozaar) 50 mg DAILY PO ; Start 11/14/18 at 12:00 Hydrochlorothiazide (Microzide) 12.5 mg DAILY PO ; Start 11/14/18 at 12:00 Enoxaparin Sodium (Lovenox 40mg Syringe) 40 mg Q24H SQ Last administered on 11/15/18at 00:03; Start 11/14/18 at 22:15 Insulin Human Lispro (HumaLOG) 0-5 UNITS TIDWMEALS SQ ; Start 11/15/18 at 08:00 Dextrose (Dextrose 50%-Water Syringe) 12.5 gm PRN Q15MIN PRN IV SEE COMMENTS; Start 11/14/18 at 22:30 Dextrose 250 ml PRN Q15MIN PRN IV SEE COMMENTS; Start 11/14/18 at 22:30 Active Scripts Active Coumadin (Warfarin Sodium) 1 Mg Tablet 1 Mg PO DAILY Oxycodone Hcl 5 Mg Capsule 5 Mg PO PRN Q4HRS PRN Reported Depakote (Divalproex Sodium) 500 Mg Tablet.dr 2 Tab PO HS Benztropine Mesylate 1 Mg Tablet 1 Tab PO BID Losartan-Hctz 50-12.5 Mg Tab (Losartan/Hydrochlorothiazide) 1 Each Tablet 1 Tab PO DAILY Haloperidol Lactate 2 Mg/1 Ml Oral.conc 2 Mg PO BID Clorazepate Dipotassium 7.5 Mg Tablet 7.5 Mg PO BID PRN Clonazepam 0.5 Mg Tablet 1 Tab PO BID Amlodipine Besylate 5 Mg Tablet 5 Mg PO DAILY Cymbalta (Duloxetine Hcl) 60 Mg Capsule.dr 1 Cap PO DAILY Vitals/I & O Vital Sign - Last 24 Hours 11/14/18 11/14/18 11/14/18 11/14/18 11:00 15:00 16:00 16:00 Temp 98.2 97.5 98.2 97.5 Pulse 80 88 88 88 Resp 16 17 B/P (MAP) 108/67 (81) 97/55 (69) 97/55 97/55 Pulse Ox 97 97 O2 Delivery Room Air Room Air 11/14/18 11/14/18 11/14/18 11/15/18 19:00 20:00 23:00 03:00 Temp 98.2 98.2 98.0 98.2 98.2 98.0 Pulse 90 82 83 Resp 18 18 18 B/P (MAP) 130/61 (84) 117/62 (80) 105/62 (76) Pulse Ox 100 96 97 O2 Delivery Room Air Room Air Room Air Room Air Intake and Output 11/14/18 11/14/18 11/15/18 15:00 23:00 07:00 Intake Total 0 ml 200 ml Balance 0 ml 200 ml SHAUN ROSE MD Nov 15, 2018 08:15
[2018-11-15] MEDS: hydroCHLOROthiazide 12.5 MG CAPSULE PO SCH (09:16)
[2018-11-15] MEDS: BENZTROPINE MESYLATE 1 MG TABLET. PO SCH ×2 (09:17→21:51)
[2018-11-15] MEDS: amLODIPine BESYLATE 5 MG TABLET PO SCH (09:17)
[2018-11-15] MEDS: clonazePAM 0.5 MG TABLET PO SCH ×2 (09:17→21:50)
[2018-11-15] MEDS: DULoxetine HCL 30 MG CAPSULE.DR PO SCH (09:17)
[2018-11-15] MEDS: LOSARTAN POTASSIUM 50 MG TABLET. PO SCH (09:17)
[2018-11-15] MEDS: HALOPERIDOL 2 MG/ML ORAL.CONC. PO SCH ×2 (09:18→21:49)
[2018-11-15 11:00] VITALS: BP 106/64
--- NOTE | 2018-11-15 13:15 | NUR ---
SW following pt for dc planning. Chart reviewed and discussed with RN. Pt lives at home with daughter. PT/OT recommends SNU. SW had spoken with pt regarding this and pt requested SW to speak with her mother. SW spoke with pt's mother, Ira who is more concerned that pt was not taking her meds and believed she might need a psych eval. Pt's mother does not believe pt will need SNU. Pt seen by Atif from [facility] team and she actually has been following up with her treatment team and Physician at [facility]. Per Atif pt has seen her Physician on and has a pillowcase cutter in the community. Pt also reported she has been compliant with her medicine. Atif had informed pt's CM to visit pt during this stay. Pt currently does not meet criteria for inpt psych and has good community support for OP services. PT/OT to work with pt again today.
[2018-11-15 15:00] VITALS: BP 115/61
[2018-11-15 19:00] VITALS: BP 97/50
[2018-11-15] MEDS: DIVALPROEX DELAYED RELEASE 500 MG TABLET.DR. PO SCH (21:50)
[2018-11-15 23:00] VITALS: BP 99/48
[2018-11-16 03:00] VITALS: BP 125/79
[2018-11-16 05:58] LABS: ALBUMIN 2.5 g/dL (3.4-5.0); ALBUMIN/GLOBULIN RATIO 0.7 (1.0-1.7); CALCIUM 8.6 mg/dL (8.5-10.1); CREATININE 0.7 mg/dL (0.6-1.0); GFR 104.7; TOTAL BILIRUBIN 0.3 mg/dL (0.2-1.0); TOTAL PROTEIN 5.9 g/dL (6.4-8.2)
[2018-11-16 07:00] VITALS: BP 114/75
[2018-11-16] MEDS: clonazePAM 0.5 MG TABLET PO SCH (08:32)
[2018-11-16] MEDS: HALOPERIDOL 2 MG/ML ORAL.CONC. PO SCH (08:32)
[2018-11-16] MEDS: DULoxetine HCL 30 MG CAPSULE.DR PO SCH (08:32)
[2018-11-16] MEDS: BENZTROPINE MESYLATE 1 MG TABLET. PO SCH (08:33)
[2018-11-16] MEDS: amLODIPine BESYLATE 5 MG TABLET PO SCH (08:33)
[2018-11-16] MEDS: hydroCHLOROthiazide 12.5 MG CAPSULE PO SCH (08:33)
[2018-11-16] MEDS: LOSARTAN POTASSIUM 50 MG TABLET. PO SCH (08:33)
--- NOTE | 2018-11-16 10:47 | NUR ---
SW following pt. Spoke with PT Hugo yesterday and pt is able to go home with home health. Pt might benefit from community social organization professor. Pt's mother had reported pt had been in and out of group homes, insurance SW is currently assisting them in finding placement. Anticipate dc with home health today. Discussed with Physician.
[2018-11-16 11:00] VITALS: BP 110/65
[2018-11-16] MEDS ORDERED: POTA20TA82 PO (11:51)
[2018-11-16] MEDS ORDERED: LOSA-73 PO (11:51)
--- NOTE | 2018-11-16 11:53 | SNU/HH DC ---
DISCHARGE WITH HOME HEALTH DISCHARGE INFORMATION: Discharge Date: Nov 16, 2018 Final Diagnosis: Problems Medical Problems: (1) Frequent falls Status: Acute (2) HTN (hypertension) Status: Chronic (3) Hypokalemia Status: Acute (4) Morbid obesity Status: Acute (5) Rhabdomyolysis Status: Acute (6) Schizophrenia Status: Chronic Condition on Discharge: Stable CODE STATUS: Code Status: Full HOME HEALTH: Face to Face: I certify this patient is under my care and that I, or a nurse practitioner or physician's power plant assistant working with me, had a face to face encounter that meets the physician face to face encounter requirements with this patient on 11/16/18. 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) Physical Therapy For: Evalulation/Treatment Occupational Therapy For: Evaluation/Treatment Home Health Aide For: Self-care ACADEMIC AFFAIRS MANAGER For: Community Resources Pt Meets Homebound Status: Poor coordination w/ amb., Frequent falls w/ injury, Psychological condition POST DISCHARGE ORDERS: Activity Instructions for Disc: Activity as tolerated Weight Bearing Status after Di: Full weight bearing Bathing Instructions: No Tub Bath until see DIET AFTER DISCHARGE: Regular Wound/Incision Care: Ice to area for comfort, Do not change dressing TREATMENT/EQUIPMENT ORDERS: Adaptive Equipment Issued: Front wheeled walker CERTIFICATION STATEMENT: Certification Statement: Certification Statement: Based on the above finding, I certify that this patient is confined to the home and needs intermittent snf care, physical therapy and/or speech therapy, or continues to need occupational therapy.~ This patient is under my care, and I have initiated the establishment of the plan of care.~ This patient will be followed by myself or a community physician who will periodically review the plan of care. Home Meds Active Scripts Potassium Chloride (POTASSIUM CHLORIDE) 20 Meq Tablet.er, 20 MEQ PO DAILY for hypokalemia for 30 Days, #30 TAB.SR Prov:SHAUN ROSE MD 11/16/18 Losartan Potassium (LOSARTAN POTASSIUM) 50 Mg Tablet, 50 MG PO DAILY for HYPERTENSION for 30 Days, #30 TAB Prov:SHAUN ROSE MD 11/16/18 Reported Medications Divalproex Sodium (DEPAKOTE) 500 Mg Tablet.dr, 2 TAB PO HS for BIPOLAR, #60 TAB 1 Refill 07/31/18 Benztropine Mesylate (BENZTROPINE MESYLATE) 1 Mg Tablet, 1 TAB PO BID for ANTIPSYCHOTIC, #60 TAB 07/31/18 Haloperidol Lactate (HALOPERIDOL LACTATE) 2 Mg/1 Ml Oral.conc, 2 MG PO BID for ANXIETY, MISC 07/31/18 Clorazepate Dipotassium (CLORAZEPATE DIPOTASSIUM) 7.5 Mg Tablet, 7.5 MG PO BID PRN for ANXIETY / AGITATION, TAB 07/31/18 Clonazepam (CLONAZEPAM ) 0.5 Mg Tablet, 1 TAB PO BID for ANXIETY, #60 TAB 1 Refill 07/31/18 Amlodipine Besylate (AMLODIPINE BESYLATE) 5 Mg Tablet, 5 MG PO DAILY for HTN, TAB 07/31/18 Duloxetine Hcl (CYMBALTA) 60 Mg Capsule.dr, 1 CAP PO DAILY for DEPRESSION, #90 CAP 3 Refills 07/31/18 Discontinued Reported Medications Losartan/Hydrochlorothiazide (LOSARTAN-HCTZ 50-12.5 MG TAB) 1 Each Tablet, 1 TAB PO DAILY for HTN, #30 TAB 5 Refills 07/31/18 Discontinued Scripts Warfarin Sodium (COUMADIN) 1 Mg Tablet, 1 MG PO DAILY for as directed by pharmacy, #30 TAB Prov:SHERI GARCIA MD 08/17/18 Oxycodone Hcl (OXYCODONE HCL) 5 Mg Capsule, 5 MG PO PRN Q4HRS PRN for PAIN, #80 TAB 0 Refills Prov:SHERI GARCIA MD 08/17/18 SHAUN ROSE MD Nov 16, 2018 11:53
[2018-11-16] MEDS ORDERED: POTASSIUM CHLORIDE 20 MEQ TABLET.ER. PO ONE (12:30)
--- NOTE | 2018-11-16 14:34 | NUR ---
Discharge Note: PT DISCHARGED HOME WITH [facility]. PT LEFT FACILITY VIA PRIVATE VEHICLE WITH MOTHER AT 1430. PT STABLE AND ALERT UPON DISCHARGE. PT PIV REMOVED FROM R HAND WITHOUT COMPLICATIONS, BANDAGE APPLIED. PT EDUCATED ABOUT DISCHARGE MEDICATIONS, DISCHARGE INSTRUCTIONS, AND FOLLOW-UP INSTRUCTIONS. PT VOICED NO CONCERNS AT THIS TIME. MALTBIA,TERETHA [address] Discharge instructions and discharge home medications reviewed with Patient and a copy given. All questions have been answered and understanding verbalized.
--- NOTE | 2018-11-16 15:19 | NUR ---
Late note: SW spoke with pt, pt's mother and Pt's CM supervisor public message service, Vee in room. CM currently working on getting pt into jail. Pt does not have Level 1 or II assessments. Pt's mother and CM and does not believe pt is appropriate for NH placement but might benefit from jail. Pt and mother agreeable with [facility] as they have adjunct psychology instructor. Orders faxed to [facility] and pt is accepted. Pt's mother reported pt does have a walker at home and they will encourage her to use it in the home. Discussed with RN and Physician.
--- NOTE | 2018-11-16 16:29 | PDOC ---
PROGRESS NOTES Chief Complaint Chief Complaint A/P: Frequent falls - uncertain etiology. her knee replacement looks great. Good ROM. Her mental status seems to be playing a strong role. Will have therapy work with her. She may need neuro consultation Hypokalemia - will check mag level, replace. Hold thiazide for now. cont cozaar Rhabdomyolysis - likely traumatic from falls, no signs of this being medication induced. Will trend LFTS and monitor renal function. Continue aggressive hydration, monitor CK Prediabetes - A1c is 6. She is a reasonably good candidate for metformin per 2014 AACE/JANNETTE guidelines, but does not want to start a new med today Hypertension - cont home meds Schizophrenia - cont haldol regimen. Her sx seem well controlled today, but depression seems to be present. Has good PCP and psych f/u. Will check TSH Depression with Anxiety - will cont low dose benzos, will cont SNRI treatment FEN - NSS + ADA diet PPX - SCDs FULL CODE Dispo - inpatient for frequent falls, inability to walk. She may need temporary SNF placement for rehabilitation History of Present Illness History of Present Illness Ms Avalos is a 58 year old female w/ PMHx Prediabetes, Anxiety, Hypertension, Schizophrenia who presents via EMS with complaining of 3 falls. Patient states she had right knee replacement 3 weeks ago (08/14/2018) and walking without walking and working. Patient states she wanted to go to the bathroom and had a fall 3 times from her bed without head injury or loss of consciousness. Patient states she started to have falls when her physical therapist stopped to visit her at home. Patient is a poor historian. Her mother comes bedside to discuss that patient has been living with her daughter and grand-daughter and her self-care has declined and she lays in bed most of the day. She is worried about this being a depressive episode, notes she was just at a psychiatrist appointment, but is concerned the patient may not be taking her meds due to her listlessness. She was noted with CPK in 900s and potassium of 3.1. Not walking, so admitted for further care. She is feeling only slightly stronger. Depressed mood. Flat affect today. She is sliding down out of bed repeatedly. C/o LE weakness, no real pain. No CP or SOB. K 3 today, already replaced. Plan: Placement may be necessary given her weakness and declined self-care Vitals Vitals Vital Signs Date Time Temp Pulse Resp B/P (MAP) Pulse Ox O2 Delivery O2 Flow Rate FiO2 11/16/18 11:00 97.8 79 16 110/65 (80) 100 Room Air 97.8 Physical Exam General: Alert, Oriented X3, Cooperative, No acute distress Abdomen: Normal bowel sounds, Soft, No tenderness, No hepatosplenomegaly, No masses Extremities: No clubbing, No cyanosis, No edema, Normal pulses, No tenderness/swelling Skin: No rashes, No breakdown, No significant lesion Labs LABS Laboratory Tests Test 11/15/18 17:20 11/15/18 20:46 11/16/18 05:20 11/16/18 07:41 Glucose (Fingerstick) 89 mg/dL (70-99) 83 mg/dL (70-99) 77 mg/dL (70-99) Sodium Level 144 mmol/L (136-145) Potassium Level 3.0 mmol/L (3.5-5.1) Chloride Level 105 mmol/L (98-107) Carbon Dioxide Level 32 mmol/L (21-32) Anion Gap 7 (6-14) Blood Urea Nitrogen 11 mg/dL (7-20) Creatinine 0.7 mg/dL (0.6-1.0) Estimated GFR (Cockcroft-Gault) 104.7 BUN/Creatinine Ratio 16 (6-20) Glucose Level 90 mg/dL (70-99) Calcium Level 8.6 mg/dL (8.5-10.1) Total Bilirubin 0.3 mg/dL (0.2-1.0) Aspartate Amino Transf (AST/SGOT) 21 U/L (15-37) Alanine Aminotransferase (ALT/SGPT) 14 U/L (14-59) Alkaline Phosphatase 100 U/L (46-116) Creatine Kinase 279 U/L (26-192) Total Protein 5.9 g/dL (6.4-8.2) Albumin 2.5 g/dL (3.4-5.0) Albumin/Globulin Ratio 0.7 (1.0-1.7) Test 11/16/18 11:25 Glucose (Fingerstick) 93 mg/dL (70-99) Assessment and Plan Assessmemt and Plan Problems Medical Problems: (1) Frequent falls Status: Acute (2) HTN (hypertension) Status: Chronic (3) Hypokalemia Status: Acute (4) Morbid obesity Status: Acute (5) Rhabdomyolysis Status: Acute (6) Schizophrenia Status: Chronic Comment Review of Relevant I have reviewed the following items kennedy (where applicable) has been applied. Labs Laboratory Tests Test 11/15/18 06:30 11/15/18 09:15 11/15/18 11:40 11/15/18 17:20 Sodium Level 144 mmol/L (136-145) Potassium Level 3.5 mmol/L (3.5-5.1) Chloride Level 104 mmol/L (98-107) Carbon Dioxide Level 34 mmol/L (21-32) Anion Gap 6 (6-14) Blood Urea Nitrogen 15 mg/dL (7-20) Creatinine 0.8 mg/dL (0.6-1.0) Estimated GFR (Cockcroft-Gault) 89.8 BUN/Creatinine Ratio 19 (6-20) Glucose Level 88 mg/dL (70-99) Calcium Level 8.6 mg/dL (8.5-10.1) Phosphorus Level 3.9 mg/dL (2.6-4.7) Magnesium Level 2.0 mg/dL (1.8-2.4) Total Bilirubin 0.2 mg/dL (0.2-1.0) Aspartate Amino Transf (AST/SGOT) 27 U/L (15-37) Alanine Aminotransferase (ALT/SGPT) 18 U/L (14-59) Alkaline Phosphatase 114 U/L (46-116) Creatine Kinase 543 U/L (26-192) Total Protein 6.0 g/dL (6.4-8.2) Albumin 2.7 g/dL (3.4-5.0) Albumin/Globulin Ratio 0.8 (1.0-1.7) Glucose (Fingerstick) 81 mg/dL (70-99) 83 mg/dL (70-99) 89 mg/dL (70-99) Test 11/15/18 20:46 11/16/18 05:20 11/16/18 07:41 11/16/18 11:25 Glucose (Fingerstick) 83 mg/dL (70-99) 77 mg/dL (70-99) 93 mg/dL (70-99) Sodium Level 144 mmol/L (136-145) Potassium Level 3.0 mmol/L (3.5-5.1) Chloride Level 105 mmol/L (98-107) Carbon Dioxide Level 32 mmol/L (21-32) Anion Gap 7 (6-14) Blood Urea Nitrogen 11 mg/dL (7-20) Creatinine 0.7 mg/dL (0.6-1.0) Estimated GFR (Cockcroft-Gault) 104.7 BUN/Creatinine Ratio 16 (6-20) Glucose Level 90 mg/dL (70-99) Calcium Level 8.6 mg/dL (8.5-10.1) Total Bilirubin 0.3 mg/dL (0.2-1.0) Aspartate Amino Transf (AST/SGOT) 21 U/L (15-37) Alanine Aminotransferase (ALT/SGPT) 14 U/L (14-59) Alkaline Phosphatase 100 U/L (46-116) Creatine Kinase 279 U/L (26-192) Total Protein 5.9 g/dL (6.4-8.2) Albumin 2.5 g/dL (3.4-5.0) Albumin/Globulin Ratio 0.7 (1.0-1.7) Laboratory Tests Test 11/15/18 17:20 11/15/18 20:46 11/16/18 05:20 11/16/18 07:41 Glucose (Fingerstick) 89 mg/dL (70-99) 83 mg/dL (70-99) 77 mg/dL (70-99) Sodium Level 144 mmol/L (136-145) Potassium Level 3.0 mmol/L (3.5-5.1) Chloride Level 105 mmol/L (98-107) Carbon Dioxide Level 32 mmol/L (21-32) Anion Gap 7 (6-14) Blood Urea Nitrogen 11 mg/dL (7-20) Creatinine 0.7 mg/dL (0.6-1.0) Estimated GFR (Cockcroft-Gault) 104.7 BUN/Creatinine Ratio 16 (6-20) Glucose Level 90 mg/dL (70-99) Calcium Level 8.6 mg/dL (8.5-10.1) Total Bilirubin 0.3 mg/dL (0.2-1.0) Aspartate Amino Transf (AST/SGOT) 21 U/L (15-37) Alanine Aminotransferase (ALT/SGPT) 14 U/L (14-59) Alkaline Phosphatase 100 U/L (46-116) Creatine Kinase 279 U/L (26-192) Total Protein 5.9 g/dL (6.4-8.2) Albumin 2.5 g/dL (3.4-5.0) Albumin/Globulin Ratio 0.7 (1.0-1.7) Test 11/16/18 11:25 Glucose (Fingerstick) 93 mg/dL (70-99) Medications Current Medications Potassium Chloride (Klor-Con) 40 meq 1X ONCE PO ; Start 11/14/18 at 04:30; Stop 11/14/18 at 05:08; Status DC Sodium Chloride 1,000 ml @ 1,000 mls/hr 1X ONCE IV ; Start 11/14/18 at 04:30; Stop 11/14/18 at 05:29; Status DC Sodium Chloride 1,000 ml @ 100 mls/hr Q10H IV Last administered on 11/15/18at 04:57; Start 11/14/18 at 05:00; Stop 11/15/18 at 04:59; Status DC Amlodipine Besylate (Norvasc) 5 mg DAILY PO Last administered on 11/16/18at 08:33; Start 11/14/18 at 12:00; Stop 11/16/18 at 14:37; Status DC Benztropine Mesylate (Cogentin) 1 mg BID PO Last administered on 11/16/18at 08:33; Start 11/14/18 at 12:00; Stop 11/16/18 at 14:37; Status DC Clonazepam (KlonoPIN) 0.5 mg BID PO Last administered on 11/16/18at 08:33; Start 11/14/18 at 12:00; Stop 11/16/18 at 14:37; Status DC Divalproex Sodium (Depakote) 1,000 mg HS PO Last administered on 11/15/18at 21:52; Start 11/14/18 at 21:00; Stop 11/16/18 at 14:37; Status DC Haloperidol Lactate (HALDOL 2mg ORAL CONC) 2 mg BID PO Last administered on 11/16/18at 08:33; Start 11/14/18 at 12:00; Stop 11/16/18 at 14:37; Status DC Lorazepam (Ativan) 1 mg PRN BID PRN PO ANXIETY / AGITATION; Start 11/14/18 at 12:00; Stop 11/16/18 at 14:37; Status DC Duloxetine HCl (Cymbalta) 60 mg DAILY PO Last administered on 11/16/18at 08:33; Start 11/14/18 at 12:00; Stop 11/16/18 at 14:37; Status DC Losartan Potassium (Cozaar) 50 mg DAILY PO Last administered on 11/16/18at 08:33; Start 11/14/18 at 12:00; Stop 11/16/18 at 14:37; Status DC Hydrochlorothiazide (Microzide) 12.5 mg DAILY PO Last administered on 11/16/18at 08:33; Start 11/14/18 at 12:00; Stop 11/16/18 at 14:37; Status DC Enoxaparin Sodium (Lovenox 40mg Syringe) 40 mg Q24H SQ Last administered on 11/15at 21:52; Start 11/14/18 at 22:15; Stop 11/16/18 at 14:37; Status DC Insulin Human Lispro (HumaLOG) 0-5 UNITS TIDWMEALS SQ ; Start 11/15/18 at 08:00; Stop 11/15/18 at 23:01; Status DC Dextrose (Dextrose 50%-Water Syringe) 12.5 gm PRN Q15MIN PRN IV SEE COMMENTS; Start 11/14/18 at 22:30; Stop 11/15/18 at 23:01; Status DC Dextrose 250 ml PRN Q15MIN PRN IV SEE COMMENTS; Start 11/14/18 at 22:30; Stop 11/15/18 at 23:01; Status DC Potassium Chloride (Klor-Con) 20 meq DAILYWBKFT PO ; Start 11/16/18 at 17:00; Stop 11/16/18 at 14:37; Status DC Potassium Chloride (Klor-Con) 40 meq 1X ONCE PO Last administered on 11/16/18at 12:40; Start 11/16/18 at 12:30; Stop 11/16/18 at 12:31; Status DC Active Scripts Active Potassium Chloride 20 Meq Tablet.er 20 Meq PO DAILY 30 Days Losartan Potassium 50 Mg Tablet 50 Mg PO DAILY 30 Days Reported Depakote (Divalproex Sodium) 500 Mg Tablet.dr 2 Tab PO HS Benztropine Mesylate 1 Mg Tablet 1 Tab PO BID Haloperidol Lactate 2 Mg/1 Ml Oral.conc 2 Mg PO BID Clorazepate Dipotassium 7.5 Mg Tablet 7.5 Mg PO BID PRN Clonazepam (Clonazepam) 0.5 Mg Tablet 1 Tab PO BID Amlodipine Besylate 5 Mg Tablet 5 Mg PO DAILY Cymbalta (Duloxetine Hcl) 60 Mg Capsule.dr 1 Cap PO DAILY Vitals/I & O Vital Sign - Last 24 Hours 11/15/18 11/15/18 11/15/18 11/16/18 19:00 20:00 23:00 03:00 Temp 98.8 98.3 98.4 98.8 98.3 98.4 Pulse 78 71 81 Resp 18 17 18 B/P (MAP) 97/50 (66) 99/48 (65) 125/79 (94) Pulse Ox 98 93 96 O2 Delivery Room Air Room Air Room Air Room Air 11/16/18 11/16/18 11/16/18 11/16/18 07:00 08:00 08:33 08:33 Temp 98.0 98.0 Pulse 80 80 80 Resp 16 B/P (MAP) 114/75 (88) 114/75 114/75 Pulse Ox 96 O2 Delivery Room Air Room Air 11/16/18 11:00 Temp 97.8 97.8 Pulse 79 Resp 16 B/P (MAP) 110/65 (80) Pulse Ox 100 O2 Delivery Room Air SHAUN ROSE MD Nov 16, 2018 16:29
--- NOTE | 2018-11-16 16:31 | PDOC3 ---
Discharge Summary Visit Information Date of Admission: Nov 14, 2018 Date of Discharge: Nov 16, 2018 Admitting Diagnosis: Frequent falls Final Diagnosis Problems Medical Problems: (1) Frequent falls Status: Acute (2) HTN (hypertension) Status: Chronic (3) Hypokalemia Status: Acute (4) Morbid obesity Status: Acute (5) Rhabdomyolysis Status: Acute (6) Schizophrenia Status: Chronic Brief Hospital Course Allergies Allergies Coded Allergies Type Severity Reaction Last Updated Verified No Known Drug Allergies 08/14/18 No Vital Signs Vital Signs Date Time Temp Pulse Resp B/P (MAP) Pulse Ox O2 Delivery O2 Flow Rate FiO2 11/16/18 11:00 97.8 79 16 110/65 (80) 100 Room Air 97.8 Lab Results Laboratory Tests Test 11/15/18 06:30 11/15/18 09:15 11/15/18 11:40 11/15/18 17:20 Sodium Level 144 mmol/L (136-145) Potassium Level 3.5 mmol/L (3.5-5.1) Chloride Level 104 mmol/L (98-107) Carbon Dioxide Level 34 mmol/L (21-32) Anion Gap 6 (6-14) Blood Urea Nitrogen 15 mg/dL (7-20) Creatinine 0.8 mg/dL (0.6-1.0) Estimated GFR (Cockcroft-Gault) 89.8 BUN/Creatinine Ratio 19 (6-20) Glucose Level 88 mg/dL (70-99) Calcium Level 8.6 mg/dL (8.5-10.1) Phosphorus Level 3.9 mg/dL (2.6-4.7) Magnesium Level 2.0 mg/dL (1.8-2.4) Total Bilirubin 0.2 mg/dL (0.2-1.0) Aspartate Amino Transf (AST/SGOT) 27 U/L (15-37) Alanine Aminotransferase (ALT/SGPT) 18 U/L (14-59) Alkaline Phosphatase 114 U/L (46-116) Creatine Kinase 543 U/L (26-192) Total Protein 6.0 g/dL (6.4-8.2) Albumin 2.7 g/dL (3.4-5.0) Albumin/Globulin Ratio 0.8 (1.0-1.7) Glucose (Fingerstick) 81 mg/dL (70-99) 83 mg/dL (70-99) 89 mg/dL (70-99) Test 11/15/18 20:46 11/16/18 05:20 11/16/18 07:41 11/16/18 11:25 Glucose (Fingerstick) 83 mg/dL (70-99) 77 mg/dL (70-99) 93 mg/dL (70-99) Sodium Level 144 mmol/L (136-145) Potassium Level 3.0 mmol/L (3.5-5.1) Chloride Level 105 mmol/L (98-107) Carbon Dioxide Level 32 mmol/L (21-32) Anion Gap 7 (6-14) Blood Urea Nitrogen 11 mg/dL (7-20) Creatinine 0.7 mg/dL (0.6-1.0) Estimated GFR (Cockcroft-Gault) 104.7 BUN/Creatinine Ratio 16 (6-20) Glucose Level 90 mg/dL (70-99) Calcium Level 8.6 mg/dL (8.5-10.1) Total Bilirubin 0.3 mg/dL (0.2-1.0) Aspartate Amino Transf (AST/SGOT) 21 U/L (15-37) Alanine Aminotransferase (ALT/SGPT) 14 U/L (14-59) Alkaline Phosphatase 100 U/L (46-116) Creatine Kinase 279 U/L (26-192) Total Protein 5.9 g/dL (6.4-8.2) Albumin 2.5 g/dL (3.4-5.0) Albumin/Globulin Ratio 0.7 (1.0-1.7) Laboratory Tests Test 11/15/18 17:20 11/15/18 20:46 11/16/18 05:20 11/16/18 07:41 Glucose (Fingerstick) 89 mg/dL (70-99) 83 mg/dL (70-99) 77 mg/dL (70-99) Sodium Level 144 mmol/L (136-145) Potassium Level 3.0 mmol/L (3.5-5.1) Chloride Level 105 mmol/L (98-107) Carbon Dioxide Level 32 mmol/L (21-32) Anion Gap 7 (6-14) Blood Urea Nitrogen 11 mg/dL (7-20) Creatinine 0.7 mg/dL (0.6-1.0) Estimated GFR (Cockcroft-Gault) 104.7 BUN/Creatinine Ratio 16 (6-20) Glucose Level 90 mg/dL (70-99) Calcium Level 8.6 mg/dL (8.5-10.1) Total Bilirubin 0.3 mg/dL (0.2-1.0) Aspartate Amino Transf (AST/SGOT) 21 U/L (15-37) Alanine Aminotransferase (ALT/SGPT) 14 U/L (14-59) Alkaline Phosphatase 100 U/L (46-116) Creatine Kinase 279 U/L (26-192) Total Protein 5.9 g/dL (6.4-8.2) Albumin 2.5 g/dL (3.4-5.0) Albumin/Globulin Ratio 0.7 (1.0-1.7) Test 11/16/18 11:25 Glucose (Fingerstick) 93 mg/dL (70-99) Brief Hospital Course Ms Avalos is a 58 year old female w/ PMHx Prediabetes, Anxiety, Hypertension, Schizophrenia who presents via EMS with complaining of 3 falls. Patient states she had right knee replacement 3 weeks ago (08/14/2018) and walking without walking and working. Patient states she wanted to go to the bathroom and had a f all 3 times from her bed without head injury or loss of consciousness. Patient states she started to have falls when her physical therapist stopped to visit her at home. Patient is a poor historian. Her mother comes bedside to discuss that patient has been living with her daughter and grand-daughter and her self-care has declined and she lays in bed most of the day. She is worried about this being a depressive episode, notes she was just at a psychiatrist appointment, but is concerned the patient may not be taking her meds due to her listlessness. She was noted with CPK in 900s and potassium of 3.1. Not walking, so admitted for further care. She is feeling only slightly stronger. Depressed mood. Flat affect today. She is sliding down out of bed repeatedly. C/o LE weakness, no real pain. No CP or SOB. K 3 today, already replaced. A/P: Frequent falls - uncertain etiology. her knee replacement looks great. Good ROM. Her mental status seems to be playing a strong role. Will have therapy work with her. She may need neuro consultation Hypokalemia - will check mag level, replace. Hold thiazide for now. cont cozaar Rhabdomyolysis - likely traumatic from falls, no signs of this being medication induced. Will trend LFTS and monitor renal function. Continue aggressive hydration, monitor CK Prediabetes - A1c is 6. She is a reasonably good candidate for metformin per 2014 AACE/JANNETTE guidelines, but does not want to start a new med today Hypertension - cont home meds Schizophrenia - cont haldol regimen. Her sx seem well controlled today, but depression seems to be present. Has good PCP and psych f/u. Will check TSH Depression with Anxiety - will cont low dose benzos, will cont SNRI treatment Plan: Will have home health on d/c Greater than 30 minutes on discharge. Discharge Information Condition at Discharge: Improved Follow Up: Weeks (1) Disposition/Orders: D/C to Home w/ HH Scheduled Amlodipine Besylate (Amlodipine Besylate) 5 Mg Tablet, 5 MG PO DAILY for HTN, (Reported) Entered as Reported by: Leanna Renee on 07/31/181519 Last Action: Continued on 11/14/181141 by SHAUN ROSE MD Benztropine Mesylate (Benztropine Mesylate) 1 Mg Tablet, 1 TAB PO BID for ANTIPSYCHOTIC, #60 (Reported) Entered as Reported by: Leanna Renee on 07/31/181519 Last Action: Continued on 11/14/181141 by SHAUN ROSE MD Clonazepam (Clonazepam ) 0.5 Mg Tablet, 1 TAB PO BID for ANXIETY, #60 Ref 1 (Reported) Entered as Reported by: Leanna Renee on 07/31/181519 Last Action: Continued on 11/14/181141 by SHAUN ROSE MD Divalproex Sodium (Depakote) 500 Mg Tablet.dr, 2 TAB PO HS for BIPOLAR, #60 Ref 1 (Reported) Entered as Reported by: Leanna Renee on 07/31/181519 Last Action: Continued on 11/14/181141 by SHAUN ROSE MD Duloxetine Hcl (Cymbalta) 60 Mg Capsule.dr, 1 CAP PO DAILY for DEPRESSION, #90 Ref 3 (Reported) Entered as Reported by: Leanna Renee on 07/31/181519 Last Action: Converted on 11/14/181141 by SHAUN ROSE MD Haloperidol Lactate (Haloperidol Lactate) 2 Mg/1 Ml Oral.conc, 2 MG PO BID for ANXIETY, (Reported) Entered as Reported by: Leanna Renee on 07/31/181519 Last Action: Continued on 11/14/181141 by SHAUN ROSE MD Losartan Potassium (Losartan Potassium) 50 Mg Tablet, 50 MG PO DAILY for HYPERTENSION for 30 Days, #30 Prescribed by: SHAUN ROSE MD on 11/16/18 1151 Potassium Chloride (Potassium Chloride) 20 Meq Tablet.er, 20 MEQ PO DAILY for hypokalemia for 30 Days, #30 Prescribed by: SHAUN ROSE MD on 11/16/18 1151 Scheduled PRN Clorazepate Dipotassium (Clorazepate Dipotassium) 7.5 Mg Tablet, 7.5 MG PO BID PRN for ANXIETY / AGITATION, (Reported) Entered as Reported by: Leanna Renee on 07/31/181519 Last Action: Converted on 11/14/181141 by SHAUN ROSE MD Discontinued Medications Losartan/Hydrochlorothiazide (Losartan-Hctz 50-12.5 Mg Tab) 1 Each Tablet, 1 TAB PO DAILY for HTN, #30 Ref 5 (Reported) Entered as Reported by: Leanna Renee on 07/31/181519 Last Action: Converted on 11/14/181141 by SHAUN ROSE MD Oxycodone Hcl (Oxycodone Hcl) 5 Mg Capsule, 5 MG PO PRN Q4HRS PRN for PAIN, #80 Ref 0 Prescribed by: SHERI GARCIA on 08/17/18930 Warfarin Sodium (Coumadin) 1 Mg Tablet, 1 MG PO DAILY for as directed by pharmacy, #30 Prescribed by: SHERI GARCIA on 08/17/18930 SHAUN ROSE MD Nov 16, 2018 16:31
[2018-11-16] MEDS ORDERED: POTASSIUM CHLORIDE 20 MEQ TABLET.ER. PO SCH (17:00)
== END 2018-11-16 14:36 | disposition home health service (06) | DRG 565 ==
LOC: ER 02:11 → 5 SOUTH 04:17
PROVIDERS: ADMIT Internal Medicine; ATTEND Internal Medicine
DX: T79.6XXA Traumatic ischemia of muscle, initial encounter (principal); Z68.41 Body mass index [BMI] 40.0-44.9, adult; E66.01 Morbid (severe) obesity due to excess calories; E87.6 Hypokalemia; F20.9 Schizophrenia, unspecified; I10 Essential (primary) hypertension; Z96.651 Presence of right artificial knee joint; R29.6 Repeated falls; F41.8 Other specified anxiety disorders; X58.XXXA Exposure to other specified factors, initial encounter; Z82.49 Family history of ischemic heart disease and other diseases of the circulatory system; Z83.3 Family history of diabetes mellitus; Z81.8 Family history of other mental and behavioral disorders
CPT/HCPCS: 36415; 70450; 71045; 80053; 82550; 82962; 83735; 83880; 84100; 84443; 84484; 85025; 93005; J1650; J1815; J7030; 97110; 97530; 99285-25; G0378

== ENCOUNTER 2019-04-20 10:57 | Emergency (ER) | payer MEDICARE, MEDICAID ==
[~2019-04-20] VITALS: Ht 162.6 cm; Wt 110.0 kg
[~2019-04-20 10:57] MED LIST changes: +LOSA-73 PO; +POTA20TA4 PO
[2019-04-20 11:10] VITALS: BP 177/79
[2019-04-20] MEDS ORDERED: KETOROLAC TROMETHAMINE 10 MG TABLET PO STA (12:09)
--- NOTE | 2019-04-20 12:13 | PHYS DOC ---
Past Medical History Past Medical History: Anxiety, Depression, Hypertension Past Surgical History: Cholecystectomy, Knee Replacement Additional Past Surgical Histo: HERNIA; R KNEE REPLACEMENT Smoking Status: Never Smoker Alcohol Use: None Drug Use: None Adult General Chief Complaint Chief Complaint: BACK PAIN - NO INJURY HPI HPI Patient is a 59 year old female who presents with back pain has been ongoing since 2013. She states last couple of months is really been acting up. She states that she has not yet seen her primary care doctor for this has been taking ibuprofen at home. Denies any additional complaints. Complete ROS were reviewed and found to be within normal limits, except as documented in the HPI Current Medications Current Medications Current Medications Medications (Trade) Dose Ordered Sig/Marcie Start Time Stop Time Status Last Admin Dose Admin Ketorolac Tromethamine (Toradol) 10 mg 1X STAT 04/20/19 12:09 04/20/19 12:10 UNV Allergies Allergies Allergies Coded Allergies Type Severity Reaction Last Updated Verified No Known Drug Allergies 08/14/18 No Physical Exam Physical Exam Constitutional: Well developed, well nourished, no acute distress, non-toxic appearance. [] HENT: Normocephalic, atraumatic, bilateral external ears normal, oropharynx moist, no oral exudates, nose normal. [] Eyes: PERRLA, EOMI, conjunctiva normal, no discharge. [] Neck: Normal range of motion, no tenderness, supple, no stridor. [] Cardiovascular:Heart rate regular rhythm, no murmur [] Lungs & Thorax: Bilateral breath sounds clear to auscultation [] Abdomen: Bowel sounds normal, soft, no tenderness, no masses, no pulsatile masses. [] Skin: Warm, dry, no erythema, no rash. [] Back: No tenderness, no CVA tenderness. [] Neurologic: Alert and oriented X 3, normal motor function, normal sensory function, no focal deficits noted. [] Psychologic: Affect normal, judgement normal, mood normal. [] Current Patient Data Vital Signs Vital Signs Date Time Temp Pulse Resp B/P (MAP) Pulse Ox O2 Delivery O2 Flow Rate FiO2 04/20/19 11:10 98.4 74 20 177/79 (111) 95 Room Air 98.4 EKG EKG [] Radiology/Procedures Radiology/Procedures [] Course & Med Decision Making Course & Med Decision Making Pertinent Labs and Imaging studies reviewed. (See chart for details) Discussed with patient that this is a chronic problem and I will give her Toradol here but she needs to follow up with primary care for management of this pain. Whitley Disclaimer Euniceon Disclaimer This electronic medical record was generated, in whole or in part, using a voice recognition dictation system. Departure Departure Impression: Primary Impression: Chronic pain Disposition: HOME, SELF-CARE Condition: STABLE Referrals: OLIVIA CAZARES MD (PCP) Patient Instructions: Chronic Back Pain Additional Instructions: Thank you for visiting [facility]. We appreciate you trusting us with your care. If any additional problems come up don't hesitate to return to visit us. Please follow up with your primary care provider so they can plan additional care if needed and know about the problem that you had. If symptoms worsen come back to the Emergency Department. Any concerning symptoms that start such as chest pain, shortness of air, weakness or numbness on one side of the body, running high fevers or any other concerning symptoms return to the ER. ENRRIQUE CORBETT APRN Apr 20, 2019 12:13
== END 2019-04-20 12:19 | disposition home or self-care (01) ==
LOC: ER 10:57
DX: G89.29 Other chronic pain (principal); M54.9 Dorsalgia, unspecified; F41.9 Anxiety disorder, unspecified; F32.9 Major depressive disorder, single episode, unspecified; I10 Essential (primary) hypertension; Z90.49 Acquired absence of other specified parts of digestive tract; Z98.890 Other specified postprocedural states
CPT/HCPCS: 99282